=== PATIENT | male | born 1945 | race Caucasian/White ===

== ENCOUNTER 2018-09-08 12:54 | Outpatient (REF) | payer MEDICARE, SELFPAY ==
[2018-09-08 20:16] LABS: Anion Gap 9.7 mmol/L (3-11); BUN 23 mg/dL (7-18); CO2 32.3 mmol/L (21.0-32.0); CREATININE 1.07 mg/dL (0.70-1.30); Calcium 9.1 mg/dL (8.5-10.1); Chloride 98 mmol/L (98-107); Glucose 144 mg/dL (70-100); NT-proBNP 61 pg/mL; Potassium 3.7 mmol/L (3.5-5.1); Sodium 140 mmol/L (136-145)
== END 2018-09-08 13:14 ==
LOC: NCHCN 12:54
PROVIDERS: PCP Family Medicine; Visit Provider Family Medicine
DX: I50.9 Heart failure, unspecified (principal)
CPT/HCPCS: 80048; 83880

== ENCOUNTER 2019-02-17 01:28 | Outpatient (CLI) | payer MEDICARE, SELFPAY ==
--- NOTE | 2019-02-17 09:57 | DI.RAD_ITS ---
SYMPTOM/DIAGNOSIS: BILAT KNEE PAIN, M25.569 RIGHT KNEE: There is severe narrowing of the medial femoral tibial joint space. There is spurring medially as well as varus angulation. Spurring is also noted at the patellofemoral joint and quadriceps insertion on the patella. Posterior soft tissue calcifications are seen which may represent loose bodies within a Harris's cyst. IMPRESSION: Severe degenerative changes of the medial femoral tibial joint. LEFT KNEE: Weight bearing views were performed. There is severe degenerative changes of the medial femoral tibial joint and significant varus angulation. There is prominent spurring as well as some lateral subluxation of the tibia with respect to the distal femur. Multiple loose bodies are seen in the posterior joint space. Mild degenerative changes are seen at the patellofemoral joint. No joint effusion is seen. IMPRESSION: Severe degenerative changes of the medial femoral tibial joint and joint space loose bodies.
== END 2019-02-17 01:48 ==
PROVIDERS: PCP Family Medicine; Visit Provider Family Medicine
DX: M25.561 Pain in right knee (principal); M25.562 Pain in left knee; M17.0 Bilateral primary osteoarthritis of knee; M23.42 Loose body in knee, left knee
CPT/HCPCS: 73562

== ENCOUNTER 2019-11-13 12:00 | Outpatient (REF) | payer MEDICARE, SELFPAY ==
[2019-11-13 18:56] LABS: HCT 48.7 % (40.0-50.0); HGB 15.7 g/dL (13.5-17.5); Mean Corp. HGB Concentration 32.2 g/dL (32.0-36.0); Mean Corpuscular Hemoglobin 30.8 pg (27.0-33.0); Mean Corpuscular Volume 95.5 fL (80-95); Mean Platelet Volume 10.3 fL (8.0-11.0); Platelet Count 248 x1000/uL (130-400); RBC Distribution Width 13.5 % (11.8-14.1); White Blood Cell Count 6.68 k/cumm (4.4-10.8)
[2019-11-13 19:03] LABS: Anion Gap 9.1 mmol/L (3-11); BUN 25 mg/dL (7-18); CO2 30.9 mmol/L (21.0-32.0); CREATININE 0.99 mg/dL (0.70-1.30); Calcium 9.3 mg/dL (8.5-10.1); Chloride 103 mmol/L (98-107); Glucose 105 mg/dL (74-106); Potassium 4.6 mmol/L (3.5-5.1); Sodium 143 mmol/L (136-145)
[2019-11-16 11:06] LABS: Hepatitis C Ab w Rflx HCV PCR Negative (Negative)
== END 2019-11-13 12:20 ==
LOC: NCHCN 12:00
PROVIDERS: PCP Family Medicine; Visit Provider Family Medicine
DX: I50.9 Heart failure, unspecified (principal); I10 Essential (primary) hypertension; R73.09 Other abnormal glucose; Z11.59 Encounter for screening for other viral diseases
CPT/HCPCS: 80048; 85027; 86803

== ENCOUNTER 2020-01-01 01:06 | Outpatient (CLI) | payer MEDICARE, SELFPAY ==
--- NOTE | 2020-01-01 12:44 | PFT_ITS ---
PULMONARY FUNCTION TEST REPORT DATE OF SERVICE: January 01, 2020 REQUESTING PROVIDER: Roderick Ryan M.D. Spirometry shows no evidence of obstructive airways disease, no bronchodilator response. Lung volumes show no evidence of restriction. Diffusion capacity normal. Airways resistance normal. IMPRESSION: Overall normal pulmonary function study. Clinical correlation recommended. When this study was compared to previous one from 01/31/15, the patient has a total of 390 cc's increase in FVC. FEV1 has improved by 320 cc's. SAAD/charmaine D/
[2020-01-01] MEDS: Albuterol HFA 18 GM 200 PUFF INH IH (15:04)
[2020-01-01] MEDS: Inhaler, Assist Device 1 EACH MC (15:04)
== END 2020-01-01 01:26 ==
PROVIDERS: PCP Family Medicine; Visit Provider Family Medicine
DX: J98.4 Other disorders of lung (principal); Z87.891 Personal history of nicotine dependence
CPT/HCPCS: 94060; 94726; 94729

== ENCOUNTER 2020-01-11 00:35 | Outpatient (CLI) | payer MEDICARE, SELFPAY ==
--- NOTE | 2020-01-11 | DI.US_ITS ---
APPROVED REPORT EXAM: Comprehensive 2D, Doppler, and color-flow Echocardiogram Patient Location: [facility] [place] Expert: Marli An RDCS (AE) Indications: CHF, Pulmonary HTN, Chronic Dyspnea, Pre op Knee Conclusion Study is limited by poor imaging windows. Left Ventricle : The left ventricle is normal size. The left ventricular systolic function is normal. The left ventricular ejection fraction is within the normal range. Mild concentric left ventricular hypertrophy. There is normal LV segmental wall motion. The left ventricular diastolic function is nor mal. LVEF is 55-60%. Right Ventricle : Right ventricle is grossly normal in size. Right ventricular systolic function is g rossly normal. Atria : The left atrium size is normal. The right atrium size is normal. Valves: There are no hemodynamically significant valvular lesions. Great Vessels : IVC is normal in size and collapses >50% with inspiration. Estimated RVSP is 30-35 m mHg. Compared to echocardiogram dated 12/05/2017: Patient's estimated pulmonary pressures have decreased. T here are no other significant changes. Wall motion Left Ventricle The left ventricle is normal size. The left ventricular systolic function is normal. The left ventric ular ejection fraction is within the normal range. Mild concentric left ventricular hypertrophy. Ther e is normal LV segmental wall motion. The left ventricular diastolic function is normal. There is no ventricular septal defect visualized. LVEF is 55-60%. Right Ventricle Right ventricle is grossly normal in size. Right ventricular systolic function is grossly normal. Atria The left atrium size is normal. The right atrium size is normal. The interatrial septum is intact wit h no evidence for an atrial septal defect. Aortic Valve The Aortic valve is sclerotic. Aortic valve is trileaflet. There is no aortic valvular stenosis. No a ortic regurgitation is present. Mitral Valve There is mitral annular calcification. No evidence of mitral valve stenosis. Trace mitral regurgitati on. Tricuspid Valve The tricuspid valve is normal in structure. There is no tricuspid valve stenosis. Mild tricuspid regu rgitation. Pulmonic Valve The pulmonary valve is normal in structure. There is no pulmonic valvular stenosis. Trace pulmonic re gurgitation. Great Vessels The aortic root is normal in size. The ascending aorta is normal in size. IVC is normal in size and c ollapses >50% with inspiration. Estimated RVSP is 30-35 mmHg. Pericardium There is no pericardial effusion. There is no pleural effusion. 2D Dimensions IVSD d PLAX 1.13 cm M: 0.6-1.2 LA vol/ BSA A2C s A-L 32.9 mL/m2 LVPW d PLAX 1.11 cm M: 0.6 - 1.2 LA vol/ BSA A4C s A-L 44.5 mL/m2 LVID d PLAX 4.81 cm M: 4.2 - 5.8 LA Vol/ BSA Biplane s A-L 38.7 mL/m2 LVDs 3.40 cm M: 2.5 - 4.0 LA Area A4C s MOD 27.92 cm2 Ao Root d 3.52 cm M: 3.1 - 3.7 LA Area A2C s MOD 24.25 cm2 RA Area A4C 20.03 cm2 RA Vol/ BSA A4C s A-L 23.9 mL/m2 Ao Asc Diam d 3.23 cm M: 2.6 - 3.4 LV EF Teichholz 56.2 % FS 29.35 % LV Diastology MV E' medial 0.139 (>0.07 m/s) E/A Ratio 1.0 LV E/e MED 6.60 (<14) MV E Vmax 0.92 (0.4-1.3 m/s) MV E' lateral 0.134 (>0.1 m/s) MV A Vmax 0.90 (0.4-1.3 m/s) LV E/e LAT 6.85 (<14) MV E/A Ratio 0.98 MV E/E' medial 6.65 MV E/E' lateral 6.89 Aortic Valve LVOT Area 2.58 cm2 AoV Area Vmax 2.20 cm2 LVOT Vmax 1.56 m/s AoV Area/ BSA (Vmax) 0.88 cm2/m2 LVOT Mean Cory. 0.94 m/s ALEJANDRO Mean Cory. 1.92 cm2 LVOT Peak Grad 9.7 mmHg ALEJANDRO Mean Cory. Index 0.77 cm2/m2 LVOT Mean Grad 4.3 mmHg LVOT VTI 0.318 m LVOT Diam s 1.80 cm (M/F) 1.5-2.5 AoV Vmax 1.83 (0.5-1.3 m/s) Velocity Ratio 0.85 AoV Mean Cory. 1.26 m/s AoV Peak Grad 13.4 mmHg LVOT SV 82.07 mL AoV Mean Grad 7.1 (<5 mmHg) AoV VTI 0.324 (0.18-0.25 m) AoV Area VTI 2.53 (2.5-4.5 cm2) AoV Area/ BSA (VTI) 1.02 cm/m2 Mitral Valve MV DT 276 (160-240 msec) MV PHT 80 msec MV Area PHT 2.75 cm2 Pulmonary Valve PV Vmax 1.79 (0.5-1.5 m/s) RVOT Peak Gr. 3.97 mmHg PV Peak Grad 12.9 mmHg RVOT Mean Gr. 2.00 mmHg PV Mean Grad 6.5 mmHg RVOT VTI 0.194 m PV VTI 0.313 m RVOT Vmax 1.00 m/s Tricuspid Valve TR Peak Grad 31.7 mmHg TR Vmax 2.82 m/s RA Pressure 3.00 mmHg RVSP (TR) 34.8 mmHg
== END 2020-01-11 00:55 ==
PROVIDERS: PCP Family Medicine; Visit Provider Family Medicine
DX: I50.9 Heart failure, unspecified (principal); I27.20 Pulmonary hypertension, unspecified; R06.09 Other forms of dyspnea; I10 Essential (primary) hypertension
CPT/HCPCS: 93306

== ENCOUNTER 2020-12-08 21:43 | Outpatient (REF) | payer OTHER, SELFPAY ==
[2020-12-11 01:13] LABS: COVID-19 RT-PCR UVMMC Result Positive (Negative)
== END 2020-12-08 21:44 | disposition home or self-care (01) ==
LOC: NCHCN 21:43
PROVIDERS: PCP Family Medicine; Visit Provider Physician Assistant
DX: Z20.822 Contact with and (suspected) exposure to COVID-19 (principal)
CPT/HCPCS: U0003

== ENCOUNTER 2020-12-09 14:51 | Emergency (ER) | payer OTHER, SELFPAY ==
[2020-12-09] VITALS (10 sets, daily range): BP systolic 144–157; BP diastolic 75–123; PULSE 69–93; RESP 12–28; TEMP 36.8; O2SAT 90–94
--- NOTE | 2020-12-09 15:00 | RT.EKG_ITS ---
APPROVED REPORT Exam: Resting ECG Patient Location: E HR:93 bpm ECG Measurements Heart Rate 93 AXIS PA 187 P 51 QRSd 90 QRS 24 QT 344 T 5 QTc 429 Conclusion Sinus rhythm Ventricular premature complex Low voltage
--- NOTE | 2020-12-09 15:00 | DI.CT_ITS ---
EXAM: CT CHEST PE CTA CLINICAL HISTORY: L sided pain with cough. TECHNIQUE: Imaging Protocol: CT angiography of the chest was performed using pulmonary embolus yaya col. Multi planar reconstructions were performed. CONTRAST MATERIAL: Intravenous: Omnipaque 350 Contrast volume: 100 cc COMPARISON: CT ABD PELVIS without CONTRAST from 11/24/2013 FINDINGS: CHEST: PULMONARY ARTERIES: There are no obvious intraluminal filling defects to suggest acute pulmonary embo li. LUNGS: There are patchy infiltrates in both lungs all lobes. Tiny amount of left pleural fluid. No right pleural fluid. No pneumothorax. No significant focal findings in the trachea and mainstem bro nchi. MEDIASTINUM: There is no hilar nor mediastinal adenopathy. Visualized thyroid unremarkable. CARDIAC: Mild cardiomegaly. No pericardial effusion.Caliber of the thoracic aorta is within normal l imits. There is no evidence of shift of the interventricular septum. PARTIALLY VISUALIZED UPPERMOST ABDOMEN: No adrenal masses. Cyst in the right kidney measuring 2.5 cm . Partially included. OSSEOUS: There are healed fractures of the left 7th and 8th ribs and there is also a healed fracture of the right 5th rib evident.. There are no acute fractures evident. IMPRESSION: 1. No evidence of acute pulmonary emboli. No evidence of pulmonary infarction.Tiny amount of left pl eural fluid evident. 2. There are diffuse bilateral patchy lung infiltrates. Recommend appropriate testing for COVID-19. Other pulmonary pathology also to be considered. 3. Healed bilateral rib fractures as described above. No acute fractures evident. No lytic osseous lesions. RADIATION DOSE DELIVERED: LINK-TO-SR Total DLP DATA REPOSITORY: All CT scans at this facility are submitted to the National Radiology Data Registry (NRDR) Dose Index Registry (DIR) with the [employer] (ACR). RADIATION OPTIMIZATION: All CT scans at this facility use at least one of these dose optimization te chniques: automated exposure control; mA and/or kV adjustment per patient size (includes targeted exa ms where dose is matched to clinical indication); or iterative reconstruction.
--- NOTE | 2020-12-09 15:01 | ED.GENADUL_ITS ---
Discharge Plan Disposition Patient Disposition: AGAINST MEDICAL ADVICE Condition: Serious Discharge Details Clinical Impression: Multifocal pneumonia Primary Care Provider: Roderick Ryan ED Provider: Svetlana Adler Home Meds and New Rx's Prescriptions: New prednisone 20 mg tablet 60 mg PO DAILY 4 Days Qty: 12 RF: 0 doxycycline hyclate 100 mg capsule 100 mg PO BID 7 Days Qty: 14 RF: 0 Continued losartan 100 MG tablet 300 mg PO DAILY RF: 0 Flovent HFA 120 PUFF HFA aerosol inhaler 2 puff Inhalation BID RF: 0 albuterol sulfate [Ventolin HFA] 8 GM HFA aerosol inhaler 2 puff Inhalation Q4H PRN PRNRF: 0 Discharge Instructions Instructions: Hypoxia (ED), Pneumonia (ED) Additional Instructions: Your work-up here today is very suggestive of COVID-19. I am very concerned that your oxygen is too low and dropped very quickly with minimal movement. I do recommend inpatient admission which you have declined today. We will try our best to manage as an outpatient with steroids and antibiotics. You are given your dosing of steroids today, next dose to be due tomorrow. I would like for you to be reassessed by her primary care in the next 24 to 48 hours. I would also like for you to discuss multiclonal antibodies with the primary care tomorrow. You may return anytime for continued care. Please come back immediately if you have any shortness of breath, difficulty breathing, chest pain or other new/worsening symptoms. Referrals: Roderick Ryan [Primary Care Provider] - Discharge Data Discharge Date/Time-TO BE ENTERED AT DEPARTURE: 12/09/20 18:35 Medical Decision Making <ABDIRIZAK Pryor - Last Filed: 12/10/20 10:52> 74-year-old gentleman history of asthma, hypertension, obesity, presenting with left-sided pleuritic chest pain with coughing over the past 2-3 days. Contact his primary care provider and sent to the ER for CTA imaging. Patient's is Covid positive, patient had Covid test negative, still pending. Clinically he appears well, nontoxic. Plan is to initiate a cardiac work-up and CTA once renal function has been determined. Medical Records Medical records reviewed: Yes I reviewed the patient's medical records. Lab Data Lab results reviewed: Yes I reviewed the patient's lab results. Lab results narrative: Laboratory Tests Range/Units 12/09/20 12/09/20 15:18 15:18 WBC (4.4-10.8) 10^3/uL 6.82 RBC (4.36-5.78) 10^6/uL 4.75 Hgb (13.5-17.5) g/dL 14.6 Hct (40.0-50.0) % 43.0 MCV (80-95) fL 90.5 MCH (27.0-33.0) pg 30.7 MCHC (32.0-36.0) % 34.0 RDW (11.8-14.1) % 12.6 Plt Count (130-400) 10^3/uL 235 MPV (8.0-11.0) fL 9.0 Immature Gran % 0.6 Neutrophils % 65.9 Lymphocytes % 22.3 Monocytes % 10.6 Eosinophils % 0.3 Basophils % 0.3 Nucleated RBC % % 0 Absolute Neutrophils (1.2-6.7) 10^3/uL 4.50 Absolute Lymphocytes (1.2-3.4) 10^3/uL 1.52 Absolute Monocytes (0.1-0.8) 10^3/uL 0.72 Absolute Eosinophils (0.0-0.7) 10^3/uL 0.02 Absolute Basophils (0.0-0.2) 10^3/uL 0.02 PT (9.3-11.0) sec 10.7 INR (0.9-1.1) 1.1 APTT (21.0-27.5) sec 26.1 ECG Data Attestation: I personally reviewed and interpreted this ECG (s) as follows: Interpretation: Please see official report by Dr. Fontaine. Sinus rhythm, ventricular of 93. Ventricular premature complex. No STEMI. <ABDIRIZAK Shelley - Last Filed: 12/09/20 23:35> Care transition myself from Dino Marcus PA-C. Please see his note regarding initial presentation, history and exam. In brief, patient 74-year-old gentleman who presented today with known COVID-19 exposure and cough. Patient contacted his primary care construct he was having some left pleuritic chest pain. With concern for potential PE 100 to come here. Patient has been hemodynamically stable here labs are without significant abnormality. At this time I assume care, is pending. CT reviewed by radiologist FINDINGS: Pulmonary arteries: Normal. Contrast opacification is diagnostic. Aorta: Normal. Lungs: Patchy bilateral peripheral dominant ground-glass and airspace opacification throughout all segments of both lung [place]. This is seen in association with mild thickening of the upper and lower lobe bronchi. Pleural spaces: Small left pleural effusion. Heart: Normal. Coronary arteries: Thin scattered multivessel calcification. Lymph nodes: Right hilar lymph node measures up to 1.4 cm. Nonspecific mildly enlarged gastrohepatic ligament lymph node up to 1.3 cm. Bones/joints: Healed nondisplaced posterior left 7th and 8th rib fractures. No acute fracture. Healed lateral right 5th rib nondisplaced fracture. No acute right-sided rib fracture. In the upper pole the right kidney there is a 3.3 cm uniformly low attenuating intracortical mass that has attenuation values convincing for benign cyst. Soft tissues: Normal. IMPRESSION: 1. Negative for pulmonary arterial embolism. 2. Diffuse bilateral lung infiltrates/pneumonia seen in association with a very small left pleural effusion and mild enlarged right hilar lymph node. 3. Incidental findings include simple right renal cyst, old healed rib fractures and coronary artery disease. Commonly reported imaging features of COVID-19 pneumonia are present. Other processes such as influenza pneumonia and organizing pneumonia, as can be seen with drug toxicity and connective tissue disease, can cause a similar imaging pattern. (Reference: Joseph) Discussed these findings with the patient. Patient requesting discharge. I reevaluated the patient. He is currently on 1 L of oxygen. I did take the patient off of the oxygen and ambulated him in the room and he quickly dropped to 83%. I expressed my concern at this. I recommended inpatient admission for his hypoxia as well as continued care for his likely COVID-19. Patient's was COVID-19 positive. His test is pending. However, his history and the CT is very suggestive of this. Patient voices understanding of the risks associated with going home AGAINST MEDICAL ADVICE. Patient does demonstrate decision- making capacity and is able to do so without evidence of medical distress. He and I did discuss my concerns about him continuing to deteriorate at home. Patient will be given a dose of steroids here. He agrees to continue with steroids at home. We will also put him on a course of antibiotics in the event that this potentially could be a bacterial pneumonia. I also advised the patient that he would be a good candidate for monoclonal antibody and encouraged that he contact his primary care tomorrow morning to discuss getting this set up as an outpatient. We also discussed oxygen monitoring. He reports that he has a monitor and temperature probe at home I will continue to monitor these things. He is aware that he may return anytime with new or worsening symptoms or for continued evaluation. Patient's and I also discussed my concerns with patient's is also in agreement with him being discharged home. She will contact them up. All his questions and concerns were addressed. Patient is leaving AGAINST MEDICAL ADVICE. HPI <ABDIRIZAK Pryor - Last Filed: 12/10/20 10:52> General Mode of arrival: ambulatory . Date/Time Provider Initiated Documentation: 12/09/20 15:00 . Limitations to Documentation: no limitations . Information obtained by: patient . HPI Narrative: This is a 74-year-old male, history of asthma, hypertension, obesity. His was tested for Covid and came back +2-3 days ago. He reports a dry cough for the last few days, now associated with left-sided chest wall pain when coughing. He denies productive cough, fever, substernal chest pain, back pain, shortness of breath, abdominal pain, nausea, vomiting. He does report he is supposed to wear TRUMAN stockings, is not, questions if the swelling in his legs bilaterally is slightly worse than baseline. He contacted his primary care provider today who attempted to obtain an outpatient CTA, unable, sent to the ER for CTA. Patient was tested for Covid yesterday, test are pending. Related Data Home Medications Medication Instructions Recorded Confirmed Flovent HFA 2 puff INHALATION BID 11/24/13 12/09/20 albuterol sulfate [Ventolin HFA] 2 puff INHALATION Q4H PRN PRN 11/24/13 12/09/20 losartan 300 mg PO DAILY 11/24/13 12/09/20 doxycycline hyclate 100 mg PO BID 7 Days #14 cap 12/09/20 prednisone 60 mg PO DAILY 4 Days #12 tab 12/09/20 Previous Rx's Medication Instructions Recorded doxycycline hyclate 100 mg PO BID 7 Days #14 cap 12/09/20 prednisone 60 mg PO DAILY 4 Days #12 tab 12/09/20 Allergies Allergy/AdvReac Type Severity Reaction Status Date / Time lisinopril Allergy Mild Wheezing Unverified 12/09/20 15:06 blood pressure pills Allergy Intermediate Uncoded 12/09/20 15:06 Review of Systems <ABDIRIZAK Pryor - Last Filed: 12/10/20 10:52> Constitutional Constitutional: Denies fatigue, Denies fever(s) and Denies headache(s) ENT Ears, Nose, Mouth, and Throat: Denies headache(s) and Denies neck pain Cardiovascular Cardiovascular: Reports chest pain and Denies dyspnea Respiratory Respiratory: Reports cough and Denies dyspnea Gastrointestinal Gastrointestinal: Denies abdominal pain, Denies nausea and Denies vomiting Musculoskeletal Musculoskeletal: Denies back pain and Denies neck pain Integumentary/Breasts Skin/Breast: Denies rash Neurologic Neurologic: Denies headache(s) Endocrine Endocrine: Denies fatigue PFSH <ABDIRIZAK Pryor - Last Filed: 12/10/20 10:52> Medical History Abscess of liver Fungal Asthma Essential hypertension Family History Mother No problems noted. Father No problems noted. Social History Smoking/Tobacco Use Status: Former Tobacco Use Smoking risk assessment performed?: Yes Alcohol Intake: never Drug use: Never Substance use type: does not use Do you feel safe at home: Yes Do you feel safe in your relationship?: Yes Exam <ABDIRIZAK Pryor - Last Filed: 12/10/20 10:52> Const General: cooperative, healthy appearing, comfortable and no acute distress Orientation: alert, awake and oriented x3 HENMT Head: normal to inspection, normocephalic and atraumatic Eyes General: appearance normal, both eyes and all related structures Conjunctivae: conjunctivae normal Sclera: sclerae normal Neck Neck: normal visual inspection, full ROM, trachea midline and supple Resp Effort & Inspection: normal respiratory effort and able to speak in complete sentences Auscultation: clear to auscultation bilaterally Cardio Rate: regular rate Rhythm: regular rhythm GI Inspection: obesity Palpation: soft and nontender Back/Spine/Pelvis Back: No back tenderness Skin General skin exam: no rashes or lesions noted Neuro General: patient alert, patient awake, moves all extremities and no focal motor deficits Cognition: normal cognition Speech: speech normal Gait: normal gait Sensory Exam: no sensory deficits noted Extrem General: normal to inspection, full ROM, capillary refill normal, no calf tenderness and pedal edema bilaterally 3+ Psych Appearance: grossly normal Mental Status: mental status grossly normal Sign Out <ABDIRIZAK Pryor - Last Filed: 12/10/20 10:52> Sign Out Data: Sign Out Comment: History of asthma, obesity, hypertension. Left-sided pleuritic chest pain with coughing for the past 2-3 days. Sent in for CTA. His Covid test is pending as of yesterday, was +3 days ago. Last updated by Yan Marcus PA at 12/09/20 15:49
[2020-12-09 15:27] LABS: Abs Immature Grans 0.04 10^3/uL (0.0-0.06); Absolute Basophil Count 0.02 10^3/uL (0.0-0.2); Absolute Eosinophil Count 0.02 10^3/uL (0.0-0.7); Absolute Lymphocyte Count 1.52 10^3/uL (1.2-3.4); Absolute Monocyte Count 0.72 10^3/uL (0.1-0.8); Basophils % 0.3; Eosinophils % 0.3; HGB 14.6 g/dL (13.5-17.5); Immature Grans % 0.6; Lymphocytes % 22.3; MCH 30.7 pg (27.0-33.0); MCV 90.5 fL (80-95); Monocytes % 10.6; Neutrophils % 65.9; Nucleated RBC 0 %; Platelet Count 235 10^3/uL (130-400); RBC 4.75 10^6/uL (4.36-5.78); RDW 12.6 % (11.8-14.1); WBC 6.82 10^3/uL (4.4-10.8)
[2020-12-09 15:42] LABS: INR 1.1 (0.9-1.1); PTT Activated 26.1 sec (21.0-27.5); Prothrombin Time 10.7 sec (9.3-11.0)
[2020-12-09 15:50] LABS: ALT 56 U/L (16-63); AST 40 U/L (15-37); Albumin 3.3 g/dL (3.4-5.0); Alkaline Phosphatase 74 U/L (46-116); Anion Gap 10.6 mmol/L (3-11); BUN 14 mg/dL (7-18); Bilirubin, Total 0.8 mg/dL (0.2-1.0); CO2 25.4 mmol/L (21.0-32.0); Calcium 8.5 mg/dL (8.5-10.1); Chloride 101 mmol/L (98-107); Glucose 143 mg/dL (74-106); Magnesium 1.7 mg/dL (1.8-2.4); Potassium 3.8 mmol/L (3.5-5.1); Sodium 137 mmol/L (136-145); Total Protein 7.7 g/dL (6.4-8.2)
[2020-12-09 15:53] LABS: Troponin I < 0.05 ng/mL (<0.06)
[2020-12-09] MEDS: Aspirin 81 MG CHEW 324 MG CH (15:56)
[2020-12-09] MEDS: Normal Saline - Diluent 50 ML VIAL IV (16:06)
[2020-12-09] MEDS: Omnipaque 350 MG/ML 100 ML BTL IJ (16:07)
--- NOTE | 2020-12-09 16:49 | DI.VRAD_ITS ---
PROCEDURE INFORMATION: Exam: CT Angiography Chest With Contrast Exam date and time: 12/09/2020 3:07 PM Age: 74 years old Clinical indication: Left-sided chest pain; Patient HX: L sided pain with cough TECHNIQUE: Imaging protocol: Computed tomographic angiography of the chest with contrast. 3D rendering (Not supervised by radiologist): MIP and/or 3D reconstructed images were created by the technologist. COMPARISON: No relevant prior studies available. FINDINGS: Pulmonary arteries: Normal. Contrast opacification is diagnostic. Aorta: Normal. Lungs: Patchy bilateral peripheral dominant ground-glass and airspace opacification throughout all segments of both lung [place]. This is seen in association with mild thickening of the upper and lower lobe bronchi. Pleural spaces: Small left pleural effusion. Heart: Normal. Coronary arteries: Thin scattered multivessel calcification. Lymph nodes: Right hilar lymph node measures up to 1.4 cm. Nonspecific mildly enlarged gastrohepatic ligament lymph node up to 1.3 cm. Bones/joints: Healed nondisplaced posterior left 7th and 8th rib fractures. No acute fracture. Healed lateral right 5th rib nondisplaced fracture. No acute right-sided rib fracture. In the upper pole the right kidney there is a 3.3 cm uniformly low attenuating intracortical mass that has attenuation values convincing for benign cyst. Soft tissues: Normal. IMPRESSION: 1. Negative for pulmonary arterial embolism. 2. Diffuse bilateral lung infiltrates/pneumonia seen in association with a very small left pleural effusion and mild enlarged right hilar lymph node. 3. Incidental findings include simple right renal cyst, old healed rib fractures and coronary artery disease. Commonly reported imaging features of COVID-19 pneumonia are present. Other processes such as influenza pneumonia and organizing pneumonia, as can be seen with drug toxicity and connective tissue disease, can cause a similar imaging pattern. (Reference: Joseph) References: Joseph Arguello et al., Radiological Society of [place] Expert Consensus Statement on Reporting Chest CT Findings Related to COVID-19. Endorsed by the Society of Thoracic Radiology, the [employer], and RSNA. Published January 20, 2020. Dictated and Authenticated by: Kelton Velasquez MD. Ordering:HARINI Heredia MD
[2020-12-09 17:32] LABS: NT-proBNP 120 pg/mL (<300)
[2020-12-09] MEDS: Dexamethasone 4 MG/ML VIAL 6 MG IVP (18:02)
[2020-12-09] MEDS: Doxycycline Hyclate 100 MG CAP PO (18:03)
--- NOTE | 2020-12-09 18:28 | NUR.NOTE ---
explained to patient the risk of signing out AMA. PAtient stated i have to some day.
== END 2020-12-09 18:35 | disposition left against medical advice (07) ==
PROVIDERS: Physician Assistant; Emergency Provider Physician Assistant; PCP Family Medicine
DX: J18.8 Other pneumonia, unspecified organism (principal); Z53.29 Procedure and treatment not carried out because of patient's decision for other reasons; R06.89 Other abnormalities of breathing; Z20.822 Contact with and (suspected) exposure to COVID-19; I10 Essential (primary) hypertension
CPT/HCPCS: 71275; 80053; 93005; 96374; 99285; 83735; 83880; 84484; 85025; 85610; 85730; 93010; 99284; J1100; J3490

== ENCOUNTER 2020-12-14 02:27 | Outpatient (CLI) | payer OTHER, SELFPAY ==
[2020-12-14] MEDS: Normal Saline 500 ML 30 ML IV (09:02)
[2020-12-14] MEDS: Normal Saline Flush 10 ML SYR IVP (09:02)
[2020-12-14 09:05] VITALS: BP 165/95; PULSE 85; RESP 28; TEMP 38.4; O2SAT 92
[2020-12-14 09:08] VITALS: BP 159/83; PULSE 80; RESP 20; TEMP 37.4; O2SAT 92
[2020-12-14 09:28] VITALS: BP 156/82; PULSE 79; RESP 24; TEMP 38.2; O2SAT 91
[2020-12-14 10:00] VITALS: BP 154/84; PULSE 76; RESP 20; TEMP 37.7; O2SAT 93
[2020-12-14 10:30] VITALS: BP 175/83; PULSE 74; RESP 20; TEMP 37.9; O2SAT 92
== END 2020-12-14 02:28 | disposition home or self-care (01) ==
PROVIDERS: PCP Family Medicine; Visit Provider Family Medicine
DX: U07.1 COVID-19 (principal)
CPT/HCPCS: 96365

== ENCOUNTER 2021-02-03 08:11 | Outpatient (REF) | payer OTHER, MEDICARE, SELFPAY ==
[2021-02-03 15:36] LABS: ALT 34 U/L (16-63); AST 24 U/L (15-37); Alkaline Phosphatase 62 U/L (46-116); Anion Gap 9.2 mmol/L (3-11); BUN 23 mg/dL (7-18); Bilirubin, Total 0.5 mg/dL (0.2-1.0); CO2 28.8 mmol/L (21.0-32.0); CREATININE 1.2 mg/dL (0.70-1.30); Chloride 103 mmol/L (98-107); Estimated GFR 59.35 (mL/min/1.73m2); Glucose 104 mg/dL (74-106); Potassium 4.3 mmol/L (3.5-5.1); Sodium 141 mmol/L (136-145); Total Protein 7.4 g/dL (6.4-8.2)
== END 2021-02-03 08:12 | disposition home or self-care (01) ==
LOC: NCHCN 08:11
PROVIDERS: PCP Family Medicine; Visit Provider Family Medicine
DX: I10 Essential (primary) hypertension (principal)
CPT/HCPCS: 80053

== ENCOUNTER → 2022-01-05 08:21 | Outpatient (BNVA) | payer OTHER, SELFPAY | PROVIDERS: PCP Family Medicine; Referring Provider Family Medicine; Visit Provider Student in an Organized Health Care Education/Training Program | DX: M17.12 Unilateral primary osteoarthritis, left knee (principal); M17.11 Unilateral primary osteoarthritis, right knee | CPT/HCPCS: 99213 ==

== ENCOUNTER 2022-04-03 14:23 | Outpatient (CLI) | payer OTHER, SELFPAY ==
--- NOTE | 2022-04-03 13:30 | DI.RAD_ITS ---
Exam(s) XR STANDING ALIGNMENT XR KNEE RT 1V EXAM: XR STANDING ALIGNMENT CLINICAL HISTORY: PRE OP R TKA. TECHNIQUE: 2D digital imaging was performed. Standing AP views were performed from the pelvis throu gh the ankles. Lateral view of the right knee COMPARISON: CR XR knee LT 3V AP,lat,roman from 02/17/2019 CR XR knee RT 3V AP,lat,roman from 02/17/2019 CR XR KNEE RT 1V from 04/03/2022 FINDINGS: BONES: No acute fracture is present. No bony destructive lesion is seen. JOINTS: Knees: Severe narrowing of the medial femoral tibial joint spaces, with a [id number] appear ance, causing severe varus angulation. The ankle and hip joints are unremarkable. There is a mild overall leg length discrepancy at the lev el of the femoral heads with the right projecting 5 millimeters superior to the left. SOFT TISSUE: Normal. 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 Mild significan t leg length discrepancy. DATA REPOSITORY: RADIATION DOSE DELIVERED:
--- NOTE | 2022-04-03 13:30 | DI.RAD_ITS ---
Exam(s) XR STANDING ALIGNMENT XR KNEE RT 1V EXAM: XR STANDING ALIGNMENT CLINICAL HISTORY: PRE OP R TKA. TECHNIQUE: 2D digital imaging was performed. Standing AP views were performed from the pelvis throu gh the ankles. Lateral view of the right knee COMPARISON: CR XR knee LT 3V AP,lat,roman from 02/17/2019 CR XR knee RT 3V AP,lat,roman from 02/17/2019 CR XR KNEE RT 1V from 04/03/2022 FINDINGS: BONES: No acute fracture is present. No bony destructive lesion is seen. JOINTS: Knees: Severe narrowing of the medial femoral tibial joint spaces, with a [id number] appear ance, causing severe varus angulation. The ankle and hip joints are unremarkable. There is a mild overall leg length discrepancy at the lev el of the femoral heads with the right projecting 5 millimeters superior to the left. SOFT TISSUE: Normal. 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 Mild significan t leg length discrepancy. DATA REPOSITORY: RADIATION DOSE DELIVERED:
== END 2022-04-03 14:24 | disposition home or self-care (01) ==
LOC: DIORS 14:23
PROVIDERS: PCP Family Medicine; Referring Provider Family Medicine; Visit Provider Physician Assistant
DX: M17.11 Unilateral primary osteoarthritis, right knee (principal); R73.03 Prediabetes
CPT/HCPCS: 73560; 77073

== ENCOUNTER 2022-04-09 03:51 | Outpatient (CLI) | payer OTHER, SELFPAY ==
[2022-04-09 11:58] LABS: Source Nasal/Nares
[2022-04-09 16:19] LABS: COVID-19 PCR Negative (Negative)
== END 2022-04-09 03:52 | disposition home or self-care (01) ==
PROVIDERS: PCP Family Medicine; Visit Provider Student in an Organized Health Care Education/Training Program
DX: Z20.822 Contact with and (suspected) exposure to COVID-19 (principal); Z01.818 Encounter for other preprocedural examination
CPT/HCPCS: 87635; U0005

== ENCOUNTER 2022-04-09 04:15 | Outpatient (CLI) | payer OTHER, SELFPAY ==
[2022-04-09 08:48] LABS: HCT 46.2 % (40.0-50.0); HGB 15.4 g/dL (13.5-17.5); MCH 30.8 pg (27.0-33.0); MCHC 33.3 % (32.0-36.0); MCV 92 fL (80-95); MPV 9.2 fL (8.0-11.0); Platelet Count 250 10^3/uL (130-400); RDW 12.8 % (11.8-14.1); RDW-SD 43.8 fL; WBC 8.35 10^3/uL (4.4-10.8)
[2022-04-09 09:15] LABS: Hemoglobin A1C 5.9 % (<5.7)
[2022-04-09 09:27] LABS: Anion Gap 6.6 mmol/L (3-11); BUN 25 mg/dL (7-18); CO2 29.4 mmol/L (21.0-32.0); CREATININE 1.1 mg/dL (0.70-1.30); Chloride 103 mmol/L (98-107); Glucose 109 mg/dL (74-106); Potassium 4.1 mmol/L (3.5-5.1); Sodium 139 mmol/L (136-145)
== END 2022-04-09 04:16 | disposition home or self-care (01) ==
LOC: LBO 04:15
PROVIDERS: Physician Assistant; PCP Family Medicine; Visit Provider Student in an Organized Health Care Education/Training Program
DX: M25.561 Pain in right knee (principal); M17.11 Unilateral primary osteoarthritis, right knee; R73.03 Prediabetes; Z01.818 Encounter for other preprocedural examination; Z01.812 Encounter for preprocedural laboratory examination
CPT/HCPCS: 36415; 80048; 85027; 83036

== ENCOUNTER 2022-04-10 07:10 | Day surgery (SDC) | payer OTHER, SELFPAY ==
[2022-04-10] VITALS (16 sets, daily range): BP systolic 97–157; BP diastolic 50–77; PULSE 64–86; RESP 13–21; TEMP 36.2–36.7; O2SAT 93–98; BMI 46.0
--- NOTE | 2022-04-10 07:20 | W.PM.DS.N ---
DS: Diagnosis Discharge Diagnosis (1) Degenerative joint disease of right knee: Status: Acute Discharge Plan Disposition Patient Disposition: HOME Condition: Good Discharge Details Reason For Visit: Right knee DJD Attending Provider: Gwyn Rich Primary Care Provider: Roderick Ryan Home Meds and New Rx's Prescriptions: New celecoxib [Celebrex] 200 mg capsule 200 mg PO BID Qty: 30 0RF aspirin 81 mg tablet,delayed release (DR/EC) 81 mg PO BID 30 Days Qty: 60 0RF acetaminophen 500 mg tablet 500 mg PO Q6H PRN (Reason: pain) Qty: 60 2RF pantoprazole 40 mg tablet,delayed release (DR/EC) 40 mg PO DAILY 30 Days Qty: 30 0RF docusate sodium [Colace] 100 mg capsule 100 mg PO BID Qty: 30 0RF gabapentin 300 mg capsule 300 mg PO QHS Qty: 14 0RF Rx Instructions: Take one tablet at bedtime oxycodone 5 mg tablet 5 mg PO Q4H PRN (Reason: severe post-operative pain) Qty: 18 0RF Rx Instructions: Take one tablet up to every 4 hours as needed for severe pain Continued metoprolol succinate 25 mg tablet extended release 24 hr 25 mg PO DAILY albuterol sulfate [Ventolin HFA] 90 mcg/actuation HFA aerosol inhaler 2 puff inhalation Q6H PRN valsartan 320 mg tablet 320 mg PO DAILY chlorthalidone 25 mg tablet 25 mg PO HS No Action ibuprofen [Advil] 200 mg Tablet 1,000 mg PO Q6H PRN Discharge Instructions Additional Instructions: Total Knee Discharge Instructions Activity: The most important activity is to walk. You should try to take short walks a few times a day. It is important that when resting you work on keeping the knee straight. Avoid putting a pillow behind the knee as this will encourage flexion. Work on range of motion exercises as provided by Physical Therapy. - Start outpatient physical therapy within 2 weeks. - You should wear the TRUMAN hose on both legs for 2 weeks. You may remove these at night. You may also use any compression sock in place of the TRUMAN hose. - Utilize [employer] to review exercises, see videos on exercises and obtain basic information pertaining to your surgery and your recovery. Dressing: Remove the Jovi wrap by 2 days after your surgery and put on the TRUMAN stocking given to you from the hospital. Keep the surgical dressing (underneath the JOVI wrap) in place for at least one week. After the first week it may be removed and replaced with light gauze and tape or nothing. The wound and dressing may get wet after 3 days but avoid soaking the dressing or otherwise it will need to be changed. Many people prefer covering the dressing with cling wrap (saran wrap) to minimize it from getting soaked. If it gets wet, just pat dry. If it starts to peel off then it will need to be changed. Medications: - You should take Tylenol and anti-inflammatory Celebrex as your primary pain control medications. If the Celebrex is too expensive or not covered, please call the office for another alternative (Advil/Ibuprofen or Naproxen/Aleve) - You have been prescribed a stronger pain medication Oxycodone for breakthrough pain, take as needed as prescribed. - You have also been prescribed a stomach acid reduction agent Pantoprozole to help reduce stomach acid and reflux. - You have been prescribed Gabapentin to take at night for restlessness and nerve pain. - You will be taking Aspirin 81mg twice a day for DVT prevention unless instructed otherwise. - If you have constipation you should take Colace (which was prescribed) or Miralax ([id number]). It takes most people 3-4 days to have a bowel movement. Follow-up: 2 weeks If you have any acute concerns or questions, please do not hesitate to contact the office at [phone]. You may contact Dr. Rich with any questions after hours through the hospital at [phone] or on his cell phone at [phone]. Referrals: Gwyn Rich MD [ [facility] STAFF PHYSICIAN] - Equipment/Supplies: Walker Activity:: Elevate Remove Dressings/Wound Care:: Do Not Remove Shower/Bathe:: Cover Diet:: As Tolerated Discharge Orders Discharge Orders: Discharge Order (Routine); Ordered 04/10/22 Ordered By: Gwyn Rich DS: Summary Time Spent with Patient providing and/or coordinating discharge services: Less than 30 minutes Status at Discharge Functional status at discharge: uses cane/walker Overall status at discharge: patient is progressing back to baseline Mental Status: mental status grossly normal Speech and Movement: speech and movement normal Mood: congruent mood Affect: normal affect Exam Psych Mental Status: mental status grossly normal Speech and Movement: speech and movement normal Mood: congruent mood Affect: normal affect DS: Data Vitals/I&O Vitals and I&O: Intake & Output 04/09/22 04/09/22 04/10/22 11:59 23:59 11:59 Weight 303 lb 15.997 oz PFSH All Active Problems Degenerative joint disease of right knee (Acute) Left knee DJD (Acute) Chronic venous insufficiency of lower extremity (Acute) left leg Prediabetes (Acute) CHF (congestive heart failure) (Chronic) Bilateral primary osteoarthritis of knee (Acute) HENNY (obstructive sleep apnea) (Chronic) Denies diagnosis and snoring 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 (Acute) Small bowel obstruction (Acute 11/24/13) Asthma (Chronic) Hypertension (Chronic) Medical History Asthma COVID-19 Essential hypertension History of tobacco use Surgical History Abscess of liver Fungal ~2010 Family History Mother No problems noted. Father No problems noted. Social History Smoking/Tobacco Use Status: Former Tobacco Use Quit Date: 10/28/94 Smoking risk assessment performed?: Yes Alcohol Intake: never Drug use: Never Substance use type: does not use Current gender identity: male Do you feel safe at home: Yes Do you feel safe in your relationship?: Yes
[2022-04-10] MEDS: Celecoxib 200 MG CAP 400 MG PO (07:59)
[2022-04-10] MEDS: Acetaminophen 500 MG TAB 1000 MG PO (07:59)
[2022-04-10] MEDS: Gabapentin 300 MG CAP PO (08:00)
[2022-04-10] MEDS: Lactated Ringers 1,000 ML 80 ML IV (08:10)
--- NOTE | 2022-04-10 08:51 | W.ANESPRE ---
General Info Date of Service Date Performed: 04/10/22 Height: 5 ft 8 in Weight: 137.4 kg Body Mass Index (BMI): 46.0 Surgical Procedure: Operation Date: 04/10/22 09:25 Proposed Procedure Side Surgeon p Knee Total Arthroplasty Cementless CR Right Gwyn Rich MD Meds Allergies and Home Medications Allergies Allergy/AdvReac Type Severity Reaction Status Date / Time lisinopril Allergy Mild Wheezing Unverified 04/10/22 07:34 aspirin AdvReac Other (See Verified 04/10/22 07:34 Comment) atenolol AdvReac cough Verified 04/10/22 07:34 spironolactone AdvReac cough, n/v Verified 04/10/22 07:34 vardenafil [From Levitra] AdvReac headache/pr Verified 04/10/22 07:34 essure blood pressure pills Allergy Intermediate Uncoded 04/10/22 07:34 Home Medication Medication Instructions Recorded albuterol sulfate 90 mcg/actuation 2 puff inhalation Q6H PRN 11/24/21 aerosol inhaler (Ventolin HFA) chlorthalidone 25 mg tablet 25 mg PO HS 11/24/21 metoprolol succinate 25 mg 25 mg PO DAILY 11/24/21 tablet,extended release 24 hr valsartan 320 mg tablet 320 mg PO DAILY 11/24/21 acetaminophen 500 mg tablet 500 mg PO Q6H PRN pain #60 tabs 04/10/22 aspirin 81 mg tablet,delayed 81 mg PO BID 30 days #60 tabs 04/10/22 release celecoxib 200 mg capsule (Celebrex) 200 mg PO BID #30 caps 04/10/22 docusate sodium 100 mg capsule 100 mg PO BID #30 caps 04/10/22 (Colace) gabapentin 300 mg capsule 300 mg PO QHS #14 caps 04/10/22 ibuprofen 200 mg tablet (Advil) 1,000 mg PO Q6H PRN 04/10/22 oxycodone 5 mg tablet 5 mg PO Q4H PRN severe 04/10/22 post-operative pain #18 tabs pantoprazole 40 mg tablet,delayed 40 mg PO DAILY 30 days #30 tabs 04/10/22 release Current Visit Medications: Current Medications Generic Name Dose Route Start Last Admin Trade Name Freq PRN Reason Stop Dose Admin Acetaminophen 1,000 mg 04/10/22 06:00 04/10/22 07:59 Acetaminophen 500 Mg Tab PO 04/10/22 16:00 1,000 mg PREOP SHAHID Administration Acetaminophen 1,000 mg 04/10/22 14:00 Acetaminophen 500 Mg Tab PO TID SHAHID Aspirin 81 mg 04/10/22 20:00 Aspirin E.C. 81 Mg Tabec PO BID SHAHID Celecoxib 400 mg 04/10/22 06:00 04/10/22 07:59 Celecoxib 200 Mg Cap PO 04/10/22 16:00 400 mg PREOP SHHAID Administration Celecoxib 200 mg 04/10/22 20:00 Celecoxib 200 Mg Cap PO BID SHAHID Docusate Sodium 100 mg 04/10/22 07:18 Docusate Sodium 100 Mg Cap PO BID PRN PRN Constipation Gabapentin 300 mg 04/10/22 06:00 04/10/22 08:00 Gabapentin 300 Mg Cap PO 04/10/22 16:00 300 mg PREOP SHAHID Administration Gabapentin 300 mg 04/10/22 22:00 Gabapentin 300 Mg Cap PO HS SHAHID Hydromorphone HCl 0.5 mg 04/10/22 07:18 Hydromorphone 2 Mg/Ml Vial IVP Q2H PRN PRN Tranexamic Acid 1,000 mg/ 60 mls @ 360 mls/hr 04/10/22 06:00 Sodium Chloride IVPB 04/10/22 16:00 PREOP SHAHID Ringer's Solution 1,000 mls @ 80 mls/hr 04/10/22 06:00 04/10/22 08:10 IV 05/09/22 23:59 80 mls/hr INFUSION SHAHID Administration Cefazolin Sodium 3,000 mg/ 100 mls @ 200 mls/hr 04/10/22 06:00 Sodium Chloride IVPB 04/10/22 16:00 PREOP SHAHID Cefazolin Sodium/Dextrose 1 gm in 50 mls @ 100 mls/hr 04/10/22 08:00 Ancef Duplex IVPB 04/11/22 00:29 Q8H SHAHID IV Miscellaneous Supplies 1 each 04/10/22 06:00 Iv Access IV 05/09/22 23:59 DIRECTED SHAHID Ondansetron HCl 4 mg 04/10/22 07:18 Ondansetron 4 Mg/2 Ml Vial IVP Q6H PRN PRN Nausea Oxycodone HCl 0 mg 04/10/22 07:18 Oxycodone 5 Mg Tab PO Q3H PRN PRN Pain Pantoprazole Sodium 40 mg 04/11/22 07:30 Pantoprazole 40 Mg Tabcr PO DAILY@0730 SHAHID Polyethylene Glycol 17 gm 04/10/22 07:18 Polyethylene Glycol 3350 17 Gm Packet PO BID PRN PRN Constipation Sodium Chloride 0 ml 04/10/22 06:00 Normal Saline Flush 10 Ml Syr IV 05/09/22 23:59 PRN PRN Sodium Chloride 0 ml 04/10/22 06:00 Normal Saline 10 Ml Vial IJ 05/09/22 23:59 DIRECTED PRN Sterile Water 0 ml 04/10/22 06:00 Water,Injection,Sterile 10 Ml Vial IJ 05/09/22 23:59 DIRECTED PRN PFSH Active Problems Active Problems: Problem Status Onset Code Degenerative joint disease of right knee M17.11 Left knee DJD M17.12 Chronic venous insufficiency of lower extremity I87.2 Prediabetes R73.03 CHF (congestive heart failure) I50.9 Bilateral primary osteoarthritis of knee M17.0 HENNY (obstructive sleep apnea) G47.33 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 C44.219 Small bowel obstruction 11/24/13 K56.69 Asthma J45.909 Hypertension I10 Medical History Medical History Asthma COVID-19 Essential hypertension History of tobacco use Surgical History Surgical History Abscess of liver Fungal ~2010 Tobacco Smoking/Tobacco Use Status: Former Tobacco Use Alcohol Alcohol Intake: never Substance Use Substance use: Never Substance use type: does not use Vital Signs and Lab Results Vital Signs Most Recent Vital Signs in EMR: Most Recent Vital Signs Temp Pulse Resp BP Pulse Ox 36.7 C 80 16 157/70 H 97 04/10/22 07:47 04/10/22 07:47 04/10/22 07:47 04/10/22 07:47 04/10/22 07:47 Lab Results Blood Type / Crossmatch: No Data to Display Complete Blood Count: White Blood Count 8.35 10^3/uL (4.4-10.8) 04/09/22 08:32 Red Blood Count 5.00 10^6/uL (4.36-5.78) 04/09/22 08:32 Hemoglobin 15.4 g/dL (13.5-17.5) 04/09/22 08:32 Hematocrit 46.2 % (40.0-50.0) 04/09/22 08:32 Platelet Count 250 10^3/uL (130-400) 04/09/22 08:32 Complete Metabolic Panel: Sodium Level 139 mmol/L (136-145) 04/09/22 08:32 Potassium Level 4.1 mmol/L (3.5-5.1) 04/09/22 08:32 Chloride Level 103 mmol/L (98-107) 04/09/22 08:32 Carbon Dioxide Level 29.4 mmol/L (21.0-32.0) 04/09/22 08:32 Blood Urea Nitrogen 25 mg/dL (7-18) H 04/09/22 08:32 Creatinine 1.1 mg/dL (0.70-1.30) 04/09/22 08:32 Estimated GFR/1.73 m2 >= 60.00 (mL/min/1.73m2) 04/09/22 08:32 Calcium Level 9.0 mg/dL (8.5-10.1) 04/09/22 08:32 Glucose Level 109 mg/dL (74-106) H 04/09/22 08:32 Hemoglobin A1c 5.9 % (<5.7) H 04/09/22 08:32 Liver Function Panel: No Data to Display Coagulation Panel: No Data to Display Cardiac Panel: No Data to Display Arterial Blood Gas: No Data to Display Venous Blood Gas: No Data to Display Pancreas Panel: No Data to Display Thyroid Panel: No Data to Display Infectious Disease: Coronavirus (COVID-19)(PCR) Negative (Negative) 04/09/22 08:42 Coronavirus 2019 Source Nasal/Nares 04/09/22 08:42 Blood Cultures: No Data to Display Toxicology Panel: No Data to Display Anesthesia Assessment and Plan Anesthesia History Personal History: No History of Anesthesia Complications Family History: No Family History of Anesthesia Complications Exercise Tolerance Exercise Tolerance: Metabolic Equivalents>4 Pertinent Negatives Pertinent Negatives: No Symptoms of GERD, No Major Cardiovascular Symptoms or Complaints, No Major Pulmonary Symptoms or Complaints and No History of CVA/TIA Cardiac & Pulmonary Exam Cardiac Exam: Normal S1/S2 Heart Sounds Pulmonary Exam: Clear Bilateral Breath Sounds Implantable Cardiac Device Does patient have a Pacemaker or an ICD?: No Airway Exam Known Difficult Airway: No Mallampati Class: 1 Mouth Opening: Normal (> 3cm) Thyromental Distance: Greater than 3 cm Facial Hair: Full [place] Neck Range of Motion: Limited ROM Neck Circumference: Thick Teeth Condition: Generalized Poor Dentition ASA Classification ASA Score: ASA 3 Emergency Case?: No NPO Status NPO Status: NPO Clears >2 hours, Solids >8 hours Anesthesia Plan Resuscitation Status: Full Code Anesthesia Technique: Spinal Anesthesia Airway Planned: Natural Airway Pain Management: Surgeon and patient request nerve block Monitors Used: Standard Monitors
[2022-04-10] MEDS: ceFAZolin 3,000 MG in Normal Saline 100 ML 200 MG IVPB (09:09)
--- NOTE | 2022-04-10 09:57 | W.ANESNERVE ---
Nerve Block Single Injection Procedure Date and Time Date Performed: 04/10/22 Procedure Start: 08:55 Location Where Procedure Performed Procedure Location: Day Surgery Unit (214) Reason Performed: Postoperative Analgesia Requesting Provider: Gwyn Rich Timeout Performed Timeout Performed: Yes Monitoring Used ECG, Blood Pressure and SpO2 Sterility Sterility: Hand Hygiene, Surgical Cap, Surgical Mask, Sterile Gloves and Eye Protection Sedation Given During Procedure Sedation Given (Indicate Dose Given): No Sedation given Patient Mental Status Patient Mental Status: Awake Nerve Block 1st Nerve Block: Laterality: Right Block Type: Adductor Canal Needle / Catheter Used: 100mm SonoPlex II Local Anesthetic Bolus (Indicate Dose Given): Lidocaine used for local infiltration of skin, Injected in 3-5ml increments after negative blood aspiration and Bupivacaine 0.25% Dose:: 20 cc Additives (Indicate Dose Given): None Ultrasound: Sterile probe cover and gel used Ultrasound Image Saved?: Yes Nerve Stimulator: Not Used Paresthesia: None Post Procedure Pain score (0-10): 0 Procedure Tolerated: No Complications and Patient tolerated well Procedure Outcome: Unsuccessful Performed By: Richard Kumar
--- NOTE | 2022-04-10 11:30 | RT.EKG_ITS ---
APPROVED REPORT Exam: Resting ECG Reason for Exam: Chest pain, post surgical Patient Location: O HR:65 bpm ECG Measurements Heart Rate 65 AXIS IL 215 P 66 QRSd 96 QRS 21 QT 428 T -5 QTc 446 Conclusion Sinus rhythm...normal P axis, V-rate 60- 99 Borderline prolonged IL interval...IL >212, V-rate 50- 90 Low voltage, precordial leads...precordial leads <1.0mV
[2022-04-10] MEDS: Aspirin 81 MG CHEW PO (11:50)
--- NOTE | 2022-04-10 12:14 | W.PM.OP ---
Date of service: 04/10/22 Time of Service: 11:00 Operative Note Operative Note DATE OF PROCEDURE: 04/10/22 PRE-OP DIAGNOSIS: Right Knee Osteoarthritis with Varus Deformity POST-OP DIAGNOSIS: same PROCEDURE: Right Total Knee Replacement SURGEON: Gwyn iRch [employer] OFFICER: Janice Pink ANESTHESIA TYPE: Spinal Refer to Anesthesia Record ESTIMATED BLOOD LOSS: 100 PATHOLOGY: none sent TOURNIQUET TIME: 0 COMPLICATIONS: None Patient was transported to: PACU Patient's condition: stable Implants: 1. Depuy Attune Cementless Posterior Stabilized Femoral Component, Size 7 2. Depuy Attune Cementless Rotating Platform Tibial Component, Size 7 3. Depuy Attune 7x6 PS/RP Poly 4. Depuy Attune Patellar Component, Size 38 Indications: I have seen Gerardo in clinic for symptoms of knee arthritis, confirmed with radiographic findings. He has exhausted nonoperative methods and was having significant limitations in daily function and desired better function and less pain. I discussed the technical details of a knee replacement. I explained the risks of the procedure to include, but not limited to, bleeding, infection, pain, stiffness, fracture, damage to nerves and vessels, damage to muscles and tendons, loosening, need for repeat procedure, blood clot and cardiopulmonary demise. Despite these risks, Gerardo elected to proceed. Findings: There was significant signs of arthritis throughout the knee involving all 3 compartments with large osteophytes, especially medially. Procedure Description: Gerardo was greeted in the preoperative holding area where the correct side was identified and marked. The consent was reviewed with the patient and signed. The history and physical was updated. All questions were answered. Preoperative medications were administered: Acetaminophen 1000mg, Celebrex 400mg, and Gabapentin 300mg. An adductor canal block was then administered by the anesthesia team in the PACU. Gerardo was taken back to the operating room. A spinal anesthestic was then attempted but unsuccessful and therefore a general anesthetic was administered. The patient was placed into the supine position on the operating room table. A nonsterile tourniquet was placed high onto the leg but only used for cementing. Posts were placed for positioning during the procedure. All bony prominences were well padded. Prophylactic antibiotics in the form of cefazolin were administered. 1g of Tranxemic Acid was given intravenously within 30 minutes of incision. The right leg was then prepped with Chloraprep and draped in a standard fashion with impervious stockinette. A second prep with Chloraprep was performed prior to application of Iodine impregnated skin protection. A timeout to confirm correct identity, side and site, procedure, allergies, anesthesia, and medical concerns was performed. With the knee in some flexion, a midline incision was made overlying the knee. Full thickness skin flaps were raised once the extensor mechanism was encountered. These were raised medially and laterally. Any bleeding was controlled with electrocautery. Once the extensor mechanism was fully exposed, a medial parapatellar arthrotomy was performed in a flexed position. All bleeding from the arthrotomy and the geniculate arteries was coagulated. A medial subperiosteal peel was performed with electrocautery to the midcoronal plane. Due to the significant varus deformity the entire medial tibial plateau was exposed. The fat pad was removed while keeping the patellar tendon protected. The anterior distal femur synovium was removed for later visualization. The ACL and PCL were resected and the anterior horn of the lateral meniscus was transected. The knee was then flexed with the patella everted. Large osteophytes from the tibia were removed. Large osteophytes from the femur were removed. Using a step drill, and based on preoperative templating, the femoral canal was entered. This was done with a step drill without any difficulty. The intramedullary distal femoral cut guide was inserted, set to a 5 degree valgus cut and 9 mm cut thickness. The distal femoral cut guide was then held in position and pinned. With the soft tissues protected, the distal cut was performed. This was passed over a few times to ensure a planar cut. I then turned attention to the tibia. The extramedullary guide was placed onto the leg. The distal aspect was slid medial to adjust for position of center of ankle and stay in line with shaft of the tibia. Approximately 3-5 degrees of posterior slope was kept in the proximal cutting guide. The center of the guide was aligned with the PCL. The stylus was used to assess cut thickness. The medial side, most involved side, was set for a 2mm cut. This was then held in position and pinned into place with 2 additional pins and a cross pin for stability. The medial and lateral collateral ligaments were protected and the cut was performed. With this completed, it was assessed and noted to be of appropriate dimensions. The guide was removed. A spacer block was inserted and the knee was brought into extension. The 6mm spacer block provided full extension, without hyperextension and with stability of both the medial and lateral collateral ligaments was assessed. The pins from the femur and the tibia were then removed. The distal femur was then sized. The anterior stylus was placed onto the lateral ridge of the anterior femur. This indicated a size 7 femur. The external rotation of the guide was adjusted to 3 degrees to match the epicondylar axis, perpendicular to Aurelio?s line. The 4-in-1 cutting guide was the placed. The posterior medial femur cut was evaluated and appeared of good thickness. The spacer block was inserted underneath the cutting guide and stability was confirmed in 90 degrees of flexion. An nury wing was used to confirm appropriate position of the anterior cut to avoid notching. This cutting guide was ensured to be flush on the cut surface and then pinned into place with headed pins. While protecting the soft tissues, quad tendon, and collateral ligaments, the anterior and posterior cuts were performed with a saw. The central two pins were removed and the posterior and anterior chamfers were cut next. The notch-cutting guide was placed. This was pinned to lateralize the femoral component as much as possible while keeping it flush on the cut surface. This was then pinned into position. A reciprocating saw was used to make the notch cut. A rasp smoothed the cut surfaces. The medial and lateral menisci were removed. A trial femoral component was then inserted, impacted down to the cut surfaces, and the lug holes were drilled. A provisional trial tibial component was placed and the knee was brought through range of motion. There was noted to be excellent extension and flexion. There was no significant instability. The patella was tracking without thumbs. A size 6mm polyethylene component provided the best range of motion and stability with less than 2mm gapping with medial and lateral stress and full extension without significant hyperextension. The tibial cut surface was fully exposed. The tibia was then sized as a 7. The tibia had been previously marked during trialing to correspond to the center of the tibial component to help with rotation. The trial was aligned to this devin, approximately rotated to the medial 1/3rd of the tibial tubercle. The trial was pinned into place. The tibia was prepared with a reamer and a keel punch and lug holes. The knee was then brought into extension and the patella was measured as 24mm. Using the patellar clamp and cut guide, this was resected to a flat surface with at least 13mm of thickness remaining. The size 38 patella fit the best. This was oriented and then clamped into position. The lugs were drilled. The trial components were removed. The final components were opened on the back table. The periosteal and capsular tissues, especially posteriorly, around the knee were then systematically injected with a periarticular cocktail consisting of 246mg of Ropivacaine, 0.5mg of Epinephrine, 0.08mg of Clonidine, and 30mg of Ketorolac, diluted to 100cc. On the back table, with the implants opened, the cement was mixed. One batch of high viscosity cement was prepared with vacuum assistance. After the cement was ready a small amount was placed on the cut surface of the patella and the patellar button was clamped into position and held. While the cement was hardening, the cementless knee components were placed. Starting with the tibial component, the tibia was subluxed anteriorly and the lug holes of the component were lined up. The tibia was then impacted with an impactor and mallet until the tibial component was in contact with the tibia. Then, the femoral component was inserted. The lug holes were aligned and the component was impacted into position. The posterior stabilized, rotating platform polyethylene was then inserted. The knee was brought into extension and the knee was irrigated with Surgiphor Betadine solution. This was allowed to sit in the knee for 3 minutes and then it was irrigated out with saline. After the cement had finally cured, approximately 15min, the clamp was removed from the patella and the knee was taken through range of motion. The patella was tracking with a no-thumbs technique. The capsule was then reapproximated with a No. 1 Vicryl at multiple locations. The capsule was finally closed with a No. 2 Stratafix, barbed suture. The second dosing of 1g TXA was started. Deep tissues were then reapproximated with 0 Vicryl and 2-0 Vicryl. The skin was closed with a running 3-0 Monocryl in a subcuticular fashion. This was reinforced with skin glue. A Mepilex silver dressing was applied along with a [id number] ELADIA wrap. A CryoCuff was applied. Gerardo was transferred to the hospital bed without difficulty an suffering no apparent complication. Gerardo has a good prognosis. Physical therapy will start today and without restrictions, weight-bearing as tolerated. Aspirin 81mg BID will be used for DVT prophylaxis.
[2022-04-10 12:26] LABS: Abs Immature Grans 0.05 10^3/uL (0.0-0.06); Absolute Basophil Count 0.07 10^3/uL (0.0-0.2); Absolute Eosinophil Count 0.08 10^3/uL (0.0-0.7); Absolute Lymphocyte Count 2.27 10^3/uL (1.2-3.4); Absolute Monocyte Count 0.47 10^3/uL (0.1-0.8); Absolute Neutrophil Count 5.74 10^3/uL (1.2-6.7); Basophils % 0.8; Eosinophils % 0.9; HCT 43.5 % (40.0-50.0); HGB 14.3 g/dL (13.5-17.5); Immature Grans % 0.6; Lymphocytes % 26.2; MCH 30.8 pg (27.0-33.0); MCHC 32.9 % (32.0-36.0); MCV 94 fL (80-95); MPV 9.6 fL (8.0-11.0); Monocytes % 5.4; Neutrophils % 66.1; Platelet Count 221 10^3/uL (130-400); RBC 4.64 10^6/uL (4.36-5.78); RDW-SD 44.4 fL; WBC 8.68 10^3/uL (4.4-10.8)
[2022-04-10 13:05] LABS: ALT 27 U/L (16-63); AST 20 U/L (15-37); Albumin 3.5 g/dL (3.4-5.0); Alkaline Phosphatase 65 U/L (46-116); Anion Gap 8.9 mmol/L (3-11); BUN 27 mg/dL (7-18); Bilirubin, Total 0.3 mg/dL (0.2-1.0); CO2 26.1 mmol/L (21.0-32.0); CREATININE 1.2 mg/dL (0.70-1.30); Calcium 8.5 mg/dL (8.5-10.1); Chloride 104 mmol/L (98-107); Estimated GFR 59.18 (mL/min/1.73m2); Glucose 141 mg/dL (74-106); Magnesium 1.7 mg/dL (1.8-2.4); NT-proBNP 110 pg/mL (<300); Potassium 3.8 mmol/L (3.5-5.1); Sodium 139 mmol/L (136-145); Total Protein 6.9 g/dL (6.4-8.2); Troponin I < 50 ng/L (<or=60)
--- NOTE | 2022-04-10 15:18 | W.ANESPOSTOP ---
Postoperative Evaluation Date, Time and Location Date Performed: 04/10/22 Time Performed: 15:14 Patient Location: Day Surgery Unit Vital Signs Most Recent Imported Vital Signs: Most Recent Vital Signs Temp Pulse Resp BP Pulse Ox 36.2 C L 77 16 135/69 93 04/10/22 14:20 04/10/22 14:20 04/10/22 14:20 04/10/22 14:20 04/10/22 14:20 Pain Score Most Recent Pain Score: Most Recent Pain Score Pain Level 0 04/10/22 14:20 Assessment Mental Status: Awake (Alert & Oriented to Patient Baseline) Airway and Respiratory Function: Patent airway with normal (patient baseline) respiratory exam Cardiovascular Function: Hemodynamically Stable Hydration Status: Adequately Hydrated Nausea & Vomiting: No Nausea or Vomiting Pain: Pt. Denies Any Pain Peripheral Nerve Block: Patient did not receive a nerve block
--- NOTE | 2022-04-10 16:15 | IN_ITS ---
Date of service: 04/10/22 Time of Service: 16:14 PT Notes Visit Reasons: Right knee DJD PT Diagnosis: Status post right TKA Diagnosis: Status post right TKA Weeks Elapsed:? week(s) and 0 day(s) Patient Location:?[facility] Referring Provider:?Gwyn Rich MD Date of Service:?April 10, 2022 4:14 pm PT Notes Visit Reasons:?[place] - R Knee DJD/Osteoarthritis Date: 04/10/2022 Referring: Gwyn Rich MD MD diagnosis: Status post right TKA PT diagnosis: Status post right TKA Subjective: No complaints of nausea, lightheadedness or discomfort Objective: 76-year-old male with osteoarthritis of the right knee status post right TKA earlier today.? Other problems include asthma and hypertension. Functional mobility: Independent with assuming the supine to sitting to standing position.? No complaints of lightheadedness or dizziness in the upright position. Gait: Ambulated approximately 100 feet with a walker, weightbearing as tolerated on right lower extremity.? His gait was stable, so we progress to crutches with a three-point gait weightbearing as tolerated.? He ascension and descended 3 steps using a railing and crutches. Articular: His active assistive right knee motion-10 to 110 degrees and nonpainful. Neuro: Intact Treatment time: 30 minutes Treatment: 58026 Assessment: Tolerated upright position well, and had safe gait with a walker and/or crutches.? He prefers using the crutches, but he is going to borrow a walker from his [facility] in case he needs more support at home. Plan: Session today consisted of getting the patient up and out of bed, gait training with a walker and crutches, stair climbing, etc.? He was also instructed in home exercise program consisting of quad and gluteal sets and ankle pumps.? He will pursue postop rehab locally.? He has a follow appointment with Dr. Rich in 2-week. Disclaimer: This note was created using [employer] voice recognition software. It was reviewed for major content. However, there may be multiple small discrepancies and errors due to the voice recognition aspects of the software.
== END 2022-04-10 16:07 | disposition home or self-care (01) ==
PROVIDERS: Student in an Organized Health Care Education/Training Program; PCP Family Medicine; Visit Provider Student in an Organized Health Care Education/Training Program
PROC: (CPT 27447; principal; 2022-04-10 09:15)
DX: M17.11 Unilateral primary osteoarthritis, right knee (principal); M21.161 Varus deformity, not elsewhere classified, right knee; J45.909 Unspecified asthma, uncomplicated; R73.03 Prediabetes; G47.33 Obstructive sleep apnea (adult) (pediatric); I87.2 Venous insufficiency (chronic) (peripheral); I50.9 Heart failure, unspecified; I11.0 Hypertensive heart disease with heart failure; R94.31 Abnormal electrocardiogram [ECG] [EKG]; R07.89 Other chest pain
CPT/HCPCS: 27447; C1776; 36415; 76942; 80053; 97161; 83735; 83880; 84484; 85025; 93005; 93010; J0690; J1100; J2250; J2405

== ENCOUNTER 2022-04-23 11:48 | Outpatient (CLI) | payer OTHER, SELFPAY ==
--- NOTE | 2022-04-23 09:45 | DI.RAD_ITS ---
Exam(s) XR KNEE RT 2V AP,LAT EXAM: XR KNEE RT 2V AP,LAT CLINICAL HISTORY: ANNUAL F/U R TKA. TECHNIQUE: 2D digital imaging was performed. COMPARISON: CR XR KNEE RT 1V from 04/03/2022 FINDINGS: Two views See satisfactory position alignment of the components of the recently placed right knee prosthesis. No fracture or obvious loosening evident. IMPRESSION: DATA REPOSITORY: RADIATION DOSE DELIVERED:
== END 2022-04-23 11:49 | disposition home or self-care (01) ==
LOC: DIORS 11:48
PROVIDERS: PCP Family Medicine; Referring Provider Family Medicine; Visit Provider Student in an Organized Health Care Education/Training Program
DX: Z96.651 Presence of right artificial knee joint (principal); Z47.1 Aftercare following joint replacement surgery; L03.115 Cellulitis of right lower limb
CPT/HCPCS: 73560

== ENCOUNTER → 2022-05-07 09:19 | Outpatient (BNVA) | payer OTHER, SELFPAY | PROVIDERS: PCP Family Medicine; Referring Provider Family Medicine; Visit Provider Physician Assistant Surgical | DX: Z47.1 Aftercare following joint replacement surgery (principal); Z96.651 Presence of right artificial knee joint; L03.115 Cellulitis of right lower limb ==

== ENCOUNTER → 2022-05-28 09:36 | Outpatient (BNVA) | payer OTHER, SELFPAY | PROVIDERS: PCP Family Medicine; Referring Provider Family Medicine; Visit Provider Student in an Organized Health Care Education/Training Program | DX: Z47.1 Aftercare following joint replacement surgery (principal); Z96.651 Presence of right artificial knee joint ==

== ENCOUNTER 2022-09-14 10:53 | Outpatient (CLI) | payer OTHER, SELFPAY ==
--- NOTE | 2022-09-14 10:45 | DI.RAD_ITS ---
Exam(s) XR STANDING ALIGNMENT EXAM: XR STANDING ALIGNMENT CLINICAL HISTORY: R TKR. TECHNIQUE: 2D digital imaging was performed. COMPARISON: CR XR STANDING ALIGNMENT from 04/03/2022 FINDINGS: Seven views: There has been interval placement of a right knee prosthesis which appears to be in satisfactory posi tion alignment. Again noted is [id number] narrowing of the medial compartment of the opposite-left knee. Lesser de generative changes are seen in the lateral compartment. Hips appear unremarkable as do the ankles. No osseous lesions. Bone density normal. IMPRESSION: Satisfactory appearance of the right knee prosthesis. Advanced degenerative [id number] narrowing of the medial compartment of the opposite-left knee. DATA REPOSITORY: RADIATION DOSE DELIVERED:
== END 2022-09-14 10:54 | disposition home or self-care (01) ==
LOC: DIORS 10:53
PROVIDERS: PCP Family Medicine; Visit Provider Family Medicine
DX: Z96.651 Presence of right artificial knee joint (principal); M17.12 Unilateral primary osteoarthritis, left knee
CPT/HCPCS: 99214; 77073

== ENCOUNTER 2022-09-25 03:56 | Outpatient (CLI) | payer OTHER, SELFPAY ==
[2022-09-25 11:10] LABS: HCT 47.4 % (40.0-50.0); HGB 15.8 g/dL (13.5-17.5); MCH 30.7 pg (27.0-33.0); MCHC 33.3 % (32.0-36.0); MCV 92 fL (80-95); MPV 9.1 fL (8.0-11.0); Platelet Count 273 10^3/uL (130-400); RBC 5.14 10^6/uL (4.36-5.78); RDW 12.9 % (11.8-14.1); RDW-SD 43.9 fL; WBC 9.02 10^3/uL (4.4-10.8)
[2022-09-25 11:43] LABS: Anion Gap 6.5 mmol/L (3-11); BUN 27 mg/dL (7-18); CO2 30.5 mmol/L (21.0-32.0); CREATININE 1.1 mg/dL (0.70-1.30); Calcium 9.1 mg/dL (8.5-10.1); Chloride 100 mmol/L (98-107); Estimated GFR 70.44 (mL/min/1.73m2); Glucose 110 mg/dL (74-106); Potassium 3.6 mmol/L (3.5-5.1); Sodium 137 mmol/L (136-145)
== END 2022-09-25 03:57 | disposition home or self-care (01) ==
LOC: LBO 03:56
PROVIDERS: PCP Family Medicine; Visit Provider Student in an Organized Health Care Education/Training Program
DX: M25.562 Pain in left knee (principal); M17.12 Unilateral primary osteoarthritis, left knee; Z01.818 Encounter for other preprocedural examination; Z01.812 Encounter for preprocedural laboratory examination
CPT/HCPCS: 36415; 80048; 85027

== ENCOUNTER 2022-10-02 06:55 | Day surgery (SDC) | payer OTHER, SELFPAY ==
[2022-10-02] VITALS (11 sets, daily range): BP systolic 104–173; BP diastolic 41–74; PULSE 59–93; RESP 14–23; TEMP 36.1–36.5; O2SAT 92–97; BMI 44.4
--- NOTE | 2022-10-02 07:14 | W.ANESPRE ---
General Info Date of Service Date Performed: 10/02/22 Height: 5 ft 10 in Weight: 140.614 kg Body Mass Index (BMI): 44.4 Surgical Procedure: Operation Date: 10/02/22 09:10 Proposed Procedure Side Surgeon p Knee Total Arthroplasty Cementless PS (sz 7 Tib/Fib) Left Gwyn Rich MD Meds Allergies and Home Medications Allergies Allergy/AdvReac Type Severity Reaction Status Date / Time lisinopril Allergy Mild Wheezing Verified 10/02/22 07:31 aspirin AdvReac Other (See Verified 10/02/22 07:31 Comment) atenolol AdvReac cough Verified 10/02/22 07:31 spironolactone AdvReac cough, n/v Verified 10/02/22 07:31 vardenafil [From Levitra] AdvReac headache/pr Verified 10/02/22 07:31 essure blood pressure pills Allergy Intermediate Uncoded 10/02/22 07:31 Home Medication Medication Instructions Recorded albuterol sulfate 90 mcg/actuation 2 puff inhalation Q6H PRN 11/24/21 aerosol inhaler (Ventolin HFA) chlorthalidone 25 mg tablet 25 mg PO DAILY 11/24/21 valsartan 320 mg tablet 320 mg PO DAILY 11/24/21 acetaminophen 500 mg tablet 1,000 mg PO TID #90 tabs 10/02/22 amlodipine 10 mg tablet 1 tab PO DAILY 10/02/22 aspirin 81 mg tablet,delayed 81 mg PO BID #60 tabs 10/02/22 release celecoxib 200 mg capsule 200 mg PO BID #60 caps 10/02/22 gabapentin 300 mg capsule 300 mg PO QHS #14 caps 10/02/22 oxycodone 5 mg tablet 5 mg PO Q4H PRN pain #20 tabs 10/02/22 pantoprazole 40 mg tablet,delayed 40 mg PO DAILY #30 tabs 10/02/22 release Current Visit Medications: Current Medications Generic Name Dose Route Start Last Admin Trade Name Freq PRN Reason Stop Dose Admin Acetaminophen 1,000 mg 10/02/22 06:00 Acetaminophen 500 Mg Tab PO 10/02/22 16:00 PREOP SHAHID Celecoxib 400 mg 10/02/22 06:00 Celecoxib 200 Mg Cap PO 10/02/22 16:00 PREOP SHAHID Gabapentin 300 mg 10/02/22 06:00 Gabapentin 300 Mg Cap PO 10/02/22 16:00 PREOP SHAHID Tranexamic Acid 1,000 mg/ 60 mls @ 360 mls/hr 10/02/22 06:00 Sodium Chloride IVPB 10/02/22 16:00 PREOP SHAHID Ringer's Solution 1,000 mls @ 80 mls/hr 10/02/22 06:00 IV 10/31/22 23:59 INFUSION SHAHID Cefazolin Sodium 3,000 mg/ 100 mls @ 200 mls/hr 10/02/22 06:00 Sodium Chloride IVPB 10/02/22 16:00 PREOP SHAHID IV Miscellaneous Supplies 1 each 10/02/22 06:00 Iv Access IV 10/31/22 23:59 DIRECTED SHAHID Sodium Chloride 0 ml 10/02/22 06:00 Normal Saline Flush 10 Ml Syr IV 10/31/22 23:59 PRN PRN Sodium Chloride 0 ml 10/02/22 06:00 Normal Saline 10 Ml Vial IJ 10/31/22 23:59 DIRECTED PRN Sterile Water 0 ml 10/02/22 06:00 Water,Injection,Sterile 10 Ml Vial IJ 10/31/22 23:59 DIRECTED PRN PFSH Active Problems Active Problems: Problem Status Onset Code Small bowel obstruction 11/24/13 K56.69 Asthma J45.909 Hypertension I10 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 C44.219 HENNY (obstructive sleep apnea) G47.33 Bilateral primary osteoarthritis of knee M17.0 CHF (congestive heart failure) I50.9 Prediabetes R73.03 Chronic venous insufficiency of lower extremity I87.2 Left knee DJD M17.12 History of right knee joint replacement 04/10/22 Z96.651 Cellulitis of right lower leg L03.115 Medical History Medical History Asthma COVID-19 Essential hypertension History of tobacco use Surgical History Surgical History Abscess of liver Fungal ~2010 Hx of total knee replacement right 04/18 Tobacco Smoking/Tobacco Use Status: Former Tobacco Use Alcohol Alcohol Intake: never Substance Use Substance use: Never Substance use type: does not use Vital Signs and Lab Results Lab Results Blood Type / Crossmatch: No Data to Display Complete Blood Count: White Blood Count 9.02 10^3/uL (4.4-10.8) 09/25/22 10:59 Red Blood Count 5.14 10^6/uL (4.36-5.78) 09/25/22 10:59 Hemoglobin 15.8 g/dL (13.5-17.5) 09/25/22 10:59 Hematocrit 47.4 % (40.0-50.0) 09/25/22 10:59 Platelet Count 273 10^3/uL (130-400) 09/25/22 10:59 Complete Metabolic Panel: Sodium 137 mmol/L (136-145) 09/25/22 10:59 Potassium 3.6 mmol/L (3.5-5.1) 09/25/22 10:59 Chloride 100 mmol/L (98-107) 09/25/22 10:59 Carbon Dioxide 30.5 mmol/L (21.0-32.0) 09/25/22 10:59 BUN 27 mg/dL (7-18) H 09/25/22 10:59 Creatinine 1.1 mg/dL (0.70-1.30) 09/25/22 10:59 Est GFR (CKD-EPI 2020) 70.44 (mL/min/1.73m2) 09/25/22 10:59 Calcium 9.1 mg/dL (8.5-10.1) 09/25/22 10:59 Glucose 110 mg/dL (74-106) H 09/25/22 10:59 Liver Function Panel: No Data to Display Coagulation Panel: No Data to Display Cardiac Panel: No Data to Display Arterial Blood Gas: No Data to Display Venous Blood Gas: No Data to Display Pancreas Panel: No Data to Display Thyroid Panel: No Data to Display Infectious Disease: No Data to Display Blood Cultures: No Data to Display Toxicology Panel: No Data to Display Anesthesia Assessment and Plan Anesthesia History Personal History: No History of Anesthesia Complications Family History: No Family History of Anesthesia Complications Exercise Tolerance Exercise Tolerance: Metabolic Equivalents>4 Pertinent Negatives Pertinent Negatives: No Symptoms of GERD, No Major Cardiovascular Symptoms or Complaints, No Major Pulmonary Symptoms or Complaints and No History of CVA/TIA Cardiac & Pulmonary Exam Cardiac Exam: Normal S1/S2 Heart Sounds Pulmonary Exam: Clear Bilateral Breath Sounds Implantable Cardiac Device Does patient have a Pacemaker or an ICD?: No Airway Exam Known Difficult Airway: No Mallampati Class: 1 Mouth Opening: Normal (> 3cm) Thyromental Distance: Greater than 3 cm Neck Range of Motion: Limited ROM Neck Circumference: Thick Teeth Condition: Generalized Poor Dentition ASA Classification ASA Score: ASA 3 Emergency Case?: No NPO Status NPO Status: NPO Clears >2 hours, Solids >8 hours Anesthesia Plan Resuscitation Status: Full Code Anesthesia Technique: Spinal Anesthesia Airway Planned: Natural Airway Pain Management: Surgeon and patient request nerve block Monitors Used: Standard Monitors
--- NOTE | 2022-10-02 07:29 | PDOC.DSDIS_ITS ---
Date of service: 10/02/22 Time of Service: 07:29 Discharge Plan Disposition Patient Disposition: HOME Condition: Good Discharge Details Reason For Visit: Left Knee DJD Attending Provider: Gwyn Rich Primary Care Provider: Roderick Ryan Home Meds and New Rx's Prescriptions: New celecoxib 200 mg capsule 200 mg PO BID Qty: 60 0RF aspirin 81 mg tablet,delayed release (DR/EC) 81 mg PO BID Qty: 60 0RF acetaminophen 500 mg tablet 1,000 mg PO TID Qty: 90 3RF pantoprazole 40 mg tablet,delayed release (DR/EC) 40 mg PO DAILY Qty: 30 0RF gabapentin 300 mg capsule 300 mg PO QHS Qty: 14 0RF oxycodone 5 mg tablet 5 mg PO Q4H MDD 6 tabs PRN (Reason: pain) Qty: 20 0RF cefadroxil 500 mg capsule 500 mg PO BID Qty: 14 0RF Continued albuterol sulfate [Ventolin HFA] 90 mcg/actuation HFA aerosol inhaler 2 puff inhalation Q6H PRN valsartan 320 mg tablet 320 mg PO DAILY chlorthalidone 25 mg tablet 25 mg PO DAILY Discontinued acetaminophen 500 mg tablet 500 mg PO Q6H PRN (Reason: pain) Qty: 60 2RF ibuprofen [Advil] 200 mg Tablet 1,000 mg PO Q6H PRN No Action amlodipine 10 mg tablet 1 tab PO DAILY Discharge Instructions Additional Instructions: Total Knee Discharge Instructions Activity: The most important activity is to walk and to work on gentle motion (both flexion and extension). You should try to take short walks a few times a day. It is important that when resting you work on keeping the knee straight. Avoid putting a pillow behind the knee as this will encourage flexion. Work on range of motion exercises as provided by Physical Therapy. - Start outpatient physical therapy within 2 weeks. - You should wear the TRUMAN hose on both legs for 2 weeks. You may remove these at night. You may also use any compression sock in place of the TRUMAN hose. - Utilize [employer] to review exercises, see videos on exercises and obtain basic information pertaining to your surgery and your recovery. Dressing: Remove the Jovi wrap by 2 days after your surgery and put on the TRUMAN stocking given to you from the hospital. Keep the surgical dressing (underneath the JOVI wrap) in place for at least one week. After the first week it may be removed and replaced with light gauze and tape or nothing. The wound and dressing may get wet after 3 days but avoid soaking the dressing or otherwise it will need to be changed. Many people prefer covering the dressing with cling wrap (saran wrap) to minimize it from getting soaked. If it gets wet, just pat dry. If it starts to peel off then it will need to be changed. Medications: - You should take Tylenol and anti-inflammatory Celebrex as your primary pain control medications. If the Celebrex is too expensive or not covered, please call the office for another alternative (Advil/Ibuprofen or Naproxen/Aleve) - You have been prescribed a stronger pain medication Oxycodone for breakthrough pain, take as needed as prescribed. - You have also been prescribed a stomach acid reduction agent Pantoprozole to help reduce stomach acid and reflux. - You have been prescribed Gabapentin to take at night for restlessness and nerve pain. - You will be taking Aspirin 81mg twice a day for DVT prevention unless instructed otherwise. - If you have constipation you should take Colace or Miralax (both [id number]). It takes most people 3-4 days to have a bowel movement. Follow-up: 2 weeks If you have any acute concerns or questions, please do not hesitate to contact the office at [phone]. You may contact Dr. Rich with any questions after hours through the hospital at [phone] or on his cell phone at [phone]. Referrals: Gwyn Rich MD [ [facility] STAFF PHYSICIAN] - Equipment/Supplies: Walker Activity:: Elevate Remove Dressings/Wound Care:: Do Not Remove Shower/Bathe:: 72 hours Equipment/Supplies:: Walker Diet:: As Tolerated DS: Diagnosis Discharge Diagnosis (1) Left knee DJD: Status: Acute
[2022-10-02] MEDS: Celecoxib 200 MG CAP 400 MG PO (08:02)
[2022-10-02] MEDS: Acetaminophen 500 MG TAB 1000 MG PO (08:02)
[2022-10-02] MEDS: Gabapentin 300 MG CAP PO (08:02)
[2022-10-02] MEDS: Lactated Ringers 1,000 ML 80 ML IV (08:25)
--- NOTE | 2022-10-02 08:52 | W.ANESNERVE ---
Nerve Block Single Injection Procedure Date and Time Date Performed: 10/02/22 Procedure Start: 08:52 Location Where Procedure Performed Procedure Location: Day Surgery Unit Reason Performed: Postoperative Analgesia Requesting Provider: Gwyn Rich Timeout Performed Timeout Performed: Yes Monitoring Used ECG, Blood Pressure and SpO2 Sterility Sterility: Hand Hygiene, Surgical Cap, Surgical Mask, Sterile Gloves and Chlorhexidine Sedation Given During Procedure Sedation Given (Indicate Dose Given): No Sedation given Patient Mental Status Patient Mental Status: Awake Nerve Block 1st Nerve Block: Laterality: Left Block Type: Adductor Canal Needle / Catheter Used: 100mm SonoPlex II Local Anesthetic Bolus (Indicate Dose Given): Lidocaine used for local infiltration of skin, Injected in 3-5ml increments after negative blood aspiration and Bupivacaine 0.25% Dose:: 15 ml Additives (Indicate Dose Given): None Ultrasound: Sterile probe cover and gel used Ultrasound Image Saved?: Yes Nerve Stimulator: Not Used Paresthesia: None Procedure Tolerated: No Complications and Patient tolerated well Procedure Outcome: Successful Performed By: Richard Duran
[2022-10-02] MEDS: ceFAZolin 3,000 MG in Normal Saline 100 ML 200 MG IVPB (09:07)
--- NOTE | 2022-10-02 10:37 | ROE_ITS ---
Date of service: 10/02/22 Time of Service: 10:45 Operative Note Operative Note DATE OF PROCEDURE: 10/02/22 PRE-OP DIAGNOSIS: Left Knee Osteoarthritis POST-OP DIAGNOSIS: same PROCEDURE: Left Total Knee Replacement SURGEON: Gwyn Rich HARDWARE DEVELOPER: Devin Benz ANESTHESIA TYPE: Spinal Refer to Anesthesia Record ESTIMATED BLOOD LOSS: 100 PATHOLOGY: none sent TOURNIQUET TIME: 0 COMPLICATIONS: None Patient was transported to: PACU Patient's condition: stable Implants: 1. Depuy Attune Cementless Posterior Stabilized Femoral Component, Size 7 2. Depuy Attune Cementless Rotating Platform Tibial Component, Size 7 3. Depuy Attune 7x7 PS/RP Poly 4. Depuy Attune Patellar Component, Size 38 Indications: I have seen Sea in clinic for symptoms of knee arthritis, confirmed with radiographic findings. He has exhausted nonoperative methods and was having significant limitations in daily function and desired better function and less pain. I discussed the technical details of a knee replacement. He had a successful replacement on the right side. I explained the risks of the procedure to include, but not limited to, bleeding, infection, pain, stiffness, fracture, damage to nerves and vessels, damage to muscles and tendons, loosening, need for repeat procedure, blood clot and cardiopulmonary demise. Despite these risks, Sea elected to proceed. Findings: There was significant signs of arthritis throughout the knee involving all 3 compartments and with notable deformity of the medial tibia. Procedure Description: Sea was greeted in the preoperative holding area where the correct side was identified and marked. The consent was reviewed with the patient and signed. The history and physical was updated. All questions were answered. Preoperative medications were administered: Acetaminophen 1000mg, Celebrex 400mg, and Gabapentin 300mg. An adductor canal block was then administered by the anesthesia team in the PACU. He was taken back to the operating room. A spinal anesthestic was then administered. The patient was placed into the supine position on the operating room table. A nonsterile tourniquet was placed high onto the leg but only used for cementing. Posts were placed for positioning during the procedure. All bony prominences were well padded. Prophylactic antibiotics in the form of Cefazolin were administered. 1g of Tranxemic Acid was given intravenously within 30 minutes of incision. The left leg was then prepped with Chloraprep and draped in a standard fashion with impervious stockinette. A second prep with Chloraprep was performed prior to application of Iodine impregnated skin protection. A timeout to confirm correct identity, side and site, procedure, allergies, anesthesia, and medical concerns was performed. With the knee in some flexion, a midline incision was made overlying the knee. Full thickness skin flaps were raised once the extensor mechanism was encountered. These were raised medially and laterally. Any bleeding was controlled with electrocautery. Once the extensor mechanism was fully exposed, a medial parapatellar arthrotomy was performed in a flexed position. All bleeding from the arthrotomy and the geniculate arteries was coagulated. A medial subperiosteal peel was performed with electrocautery to the midcoronal plane. Due to the significant varus de formity the entire medial tibial plateau was exposed. The fat pad was removed while keeping the patellar tendon protected. The anterior distal femur synovium was removed for later visualization. The ACL and PCL were resected and the anterior horn of the lateral meniscus was transected. The knee was then flexed with the patella everted. Large osteophytes from the tibia were removed. Large osteophytes from the femur were removed. Using a step drill, and based on preoperative templating, the femoral canal was entered. This was done with a step drill without any difficulty. The intramed ullary distal femoral cut guide was inserted, set to a 5 degree valgus cut and 9mm cut thickness. The distal femoral cut guide was then held in position and pinned. With the soft tissues protected, the distal cut was performed. This was passed over a few times to ensure a planar cut. I then turned attention to the tibia. The extramedullary guide was placed onto the leg. The distal aspect was slid medial to adjust for position of center of ankle and stay in line with shaft of the tibia. Approximately 3-5 degrees of posterior slope was kept in the proximal cutting guide. The center of the guide was aligned with the PCL. The stylus was used to assess cut thickness. The medial side, most involved side, was set for a 3mm cut, corresponding to 8mm laterally. This was then held in position and pinned into place with 2 additional pins and a cross pin for stability. The medial and lateral collateral ligaments were protected and the cut was performed. With this completed, it was assessed and noted to be of appropriate dimensions. The guide was removed. A spacer block was inserted and the knee was brought into extension. The 6mm spacer block provided full extension, without hyperextension and with stability of both the medial and lateral collateral ligaments was assessed. The pins from the femur and the tibia were then removed. The distal femur was then sized. The anterior stylus was placed onto the lateral ridge of the anterior femur. This indicated a size 7 femur. The external rotation of the guide was adjusted to 0 degrees to match the epicondylar axis, perpendicular to Glouster?s line. The 4-in-1 cutting guide was the placed. The posterior medial femur cut was evaluated and appeared of good thickness. The spacer block was inserted underneath the cutting guide and stability was confirmed in 90 degrees of flexion. An nury wing was used to confirm appropriate position of the anterior cut to avoid notching. This cutting guide was ensured to be flush on the cut surface and then pinned into place with headed pins. While protecting the soft tissues, quad tendon, and collateral ligaments, the anterior and posterior cuts were performed with a saw. The central two pins were removed and the posterior and anterior chamfers were cut next. The notch-cutting guide was placed. This was pinned to lateralize the femoral component as much as possible while keeping it flush on the cut surface. This was then pinned into position. A reciprocating saw was used to make the notch cut. A rasp smoothed the cut surfaces. The medial and lateral menisci were removed. A trial femoral component was then inserted, impacted down to the cut surfaces, and the lug holes were drilled. A provisional trial tibial component was placed and the knee was brought through range of motion. The polyethylene was trialed until there was good flexion and extension with excellent stability to the medial and lateral collaterals. The patella was tracking without thumbs. A size 7mm polyethylene component provided the best range of motion and stability with less than 2mm gapping with medial and lateral stress and full extension without significant hyperextension. The tibial cut surface was fully exposed. The tibia was then sized as a 7. The tibia had been previously marked during trialing to correspond to the center of the tibial component to help with rotation. The trial was aligned to this devin, approximately rotated to the medial 1/3rd of the tibial tubercle. The trial was pinned into place. The tibia was prepared with a reamer and a keel punch and lug holes. The knee was then brought into extension and the patella was measured as 24mm. Using the patellar clamp and cut guide, this was resected to a flat surface with at least 13mm of thickness remaining. The size 38 patella fit the best. This was oriented and then clamped into position. The lugs were drilled. The trial components were removed. The final components were opened on the back table. The periosteal and capsular tissues, especially posteriorly, around the knee were then systematically injected with a periarticular cocktail consisting of 246mg of Ropivacaine, 0.5mg of Epinephrine, 0.08mg of Clonidine, and 30mg of Ketorolac, diluted to 100cc. On the back table, with the implants opened, the cement was mixed. One batch of high viscosity cement was prepared with vacuum assistance. After the cement was ready a small amount was placed on the cut surface of the patella and the patellar button was clamped into position and held. While the cement was harde michael, the cementless knee components were placed. Starting with the tibial component, the tibia was subluxed anteriorly and the lug holes of the component were lined up. The tibia was then impacted with an impactor and mallet until the tibial component was in contact with the tibia. Then, the femoral component was inserted. The lug holes were aligned and the component was impacted into position. The tibia was then subluxed forward and the final implant was placed. The knee was irrigated with Surgiphor Betadine solution. This was allowed to sit in the knee for 3 minutes and then it was irrigated out with saline. After the cement had finally cured, approximately 15min, the clamp was removed from the patella and the knee was taken through range of motion. The patella was tracking with a no-thumbs technique. The capsule was then reapproximated with a No. 1 Vicryl at multiple locations. The capsule was finally closed with a No. 2 Stratafix, barbed suture. The second dosing of 1g TXA was started. Deep tissues were then reapproximated with 0 Vicryl and 2-0 Vicryl. The skin was closed with a running 3-0 Monocryl in a subcuticular fashion. This was reinforced with skin glue. A Mepilex silver dressing was applied along with a [id number] ELADIA wrap. A CryoCuff was applied. Sea was transferred to the hospital bed without difficulty an suffering no apparent complication. He has a good prognosis. Physical therapy will start today and without restrictions, weight-bearing as tolerated. Aspirin 81mg BID will be used for DVT prophylaxis. We will also use an extended antibiotic prohphylaxis given his morbid obesity and chronic edema.
[2022-10-02] MEDS: HYDROmorphone 2 MG/ML SYR IVP ×2 (11:43→11:58)
[2022-10-02] MEDS: Normal Saline 10 ML VIAL IJ (11:43)
--- NOTE | 2022-10-02 13:19 | IN_ITS ---
Date of service: 10/02/22 Time of Service: 13:19 PT Notes Visit Reasons: Left Knee DJD Physical Therapy Day Surgery Initial Evaluation Date: 10/02/2022 Referring Doctor: ABDIRIZAK Golden PT Orders: PT CONSULT: S/P Ortho surgery Precautions: WBAT on L LE with AD. Patient Profile/Admitting Diagnosis: Gerardo is a 76-year-old male with degenerative joint disease of the left knee and is status post total knee arthroplasty on postoperative day 1. PMHX: All Active Problems? Cellulitis of right lower leg (Acute) History of right knee joint replacement (Acute 04/10/22) Left knee DJD (Acute) Chronic venous insufficiency of lower extremity (Acute) left legPrediabetes (Acute) CHF (congestive heart failure) (Chronic) Bilateral primary osteoarthritis of knee (Acute) HENNY (obstructive sleep apnea) (Chronic) Denies diagnosis and snoring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 (Acute) Small bowel obstruction (Acute 11/24/13) Asthma (Chronic) Hypertension (Chronic) Medical History Asthma COVID-19 Essential hypertension History of tobacco use Surgical History? Abscess of liver Fungal ~2010 Social History/Home Situation: Lives with in a private home that has a ramp to enter. He also has three steps through the garage and another 4 steps that lead to the entrance door alternately. Has a flight of steps to the second floor where his bedroom is. Works as a tractor trailer truck driver. Equipment Owned/DME: Bilateral axillary crutches, single point cane Subjective: Reports 3-4/10 pain in the L knee that did not limit today's ambulation distance. Also states of stifness that wore off with ambulation. Denies headache, chest pain, and lightheadedness throughout. Objective: General Observation: Seated on bedside recliner. ELADIA wraps to L LE. TEDS to R leg. Mental Status: Alert and oriented x 4 Pain: 3-4/10 in the L knee ROM: Right Lower Extremity: Hip flexion WFL. Hip abduction WFL. Knee flexion WFL. Ankle dorsiflexion WFL. Ankle plantarflexion WFL. Left Lower Extremity: Hip flexion WFL. Hip abduction WFL. Knee flexion 20 degrees through 90 degrees. Knee extension -20 degrees. Ankle dorsiflexion WFL. Ankle plantarflexion WFL. Strength: Right Lower Extremity: Hip flexors 5/5. Hip abductors 5/5. Knee flexors 5/5. Knee extensors 5/5. Ankle dorsiflexors 5/5. Ankle plantarflexors 5/5. Left Lower Extremity:Hip flexors 5/5. Hip abductors 5/5. Knee flexors 3-/5. Knee extensors 3-/5. Ankle dorsiflexors 5/5. Ankle plantarflexors 5/5. Sensation: Intact as to pain and light pressure in B LE Bed Mobility/Transfers: Supine to sit stand by assist Sit to stand stand by assist Stand to sit stand by assist Bed to chair stand by assist Gait: 150 feet using front-wheeled walker with stand by assist, step-to gait pattern. Inadequate flexion in L knee during swing but no LOB nor path deviation. Good quad activation. Stairs: Up and down 6 x4-inch steps and 4 x 6-inch steps while holding onto B rails with step-to gait pattern requiring stand by assist and minimal cueing for correct technique. THERA EX: Gluteal sets x 5 Quadriceps sets x 5 Heel slides x 5 SLR x 5 with extensor lag noted LAQ x 5 Ankle PF/DF Balance: Static Sitting: Normal Dynamic Sitting: Normal Static Standing: Fair Dynamic Standing: Fair Special Tests: Mobility Limitations Standardized Measure [facility] AM-PAC 6 clicks Basic Mobility Inpatient Short Form: Raw Score: 23 CMS Score: 11% deficit Informed Consent/Education: Patient instructed in purpose of PT consult. Packet containing TKA exercise protocol has been given to patient. Education and training on initial set of exercises that can be done at home have been completed with patient. Assessment: Gerardo requires the use of FWW for all mobility ADLs to maximize independecen and reduce fall risk. Patient presents with clinical signs and symptoms consistent with current/admitting diagnoses that have resulted to mobility limitations, gait instability, generalized weakness, and impairment of motor control as demonstrated by the following impairment level findings: 1. Decreased strength to left knee major muscle groups 2. Impaired standing balance 3. Limitation of joint range of motion in left knee Impairments are contributing to the following functional limitations: 1. Inability to safely ambulate without assistive device 2. Increase completion time for mobility ADL performance 3. Increased fall risk Patient is assessed as a 05644 moderate complexity based on the following: History: 76-year-old male with impairment level findings, functional limitations, and past medical history as indicated above Examination: Demonstrable impairment in strength, balance, and mobility level with underlying impairments and functional limitations as documented above Presentation: Evolving Decision Makin moderate Goals: N/A. PT evaluation and 1-2 treatment sessions only for functional mobility training using recommended AD and for HEP instruction. Plan of Care/Treatment Plan: N/A. PT evaluation and 1-2 treatment session only for functional mobility training using recommended AD and for HEP instruction. DISCHARGE RECOMMENDATIONS: Home when medically cleared by orthopedic surgeon. Patient will benefit from outpatient physical therapy services in order to optimize functional mobility outcomes and facilitate independent community ambulation without an assistive device. TREATMENT CODE/TIME: 67815 x 28 minutes beginning at 13:19 PM. Thank you for the opportunity to participate in the care of this patient. Maria Dolores Barrientos PT, DPT, CLT [facility] [place], [place]
--- NOTE | 2022-10-02 14:17 | W.ANESPOSTOP ---
Postoperative Evaluation Date, Time and Location Date Performed: 10/02/22 Time Performed: 13:35 Patient Location: Day Surgery Unit Vital Signs Most Recent Imported Vital Signs: Most Recent Vital Signs Temp Pulse Resp BP Pulse Ox 36.1 C L 69 17 130/70 92 10/02/22 12:55 10/02/22 12:55 10/02/22 12:55 10/02/22 12:55 10/02/22 12:55 Pain Score Most Recent Pain Score: Most Recent Pain Score Pain Level 2 10/02/22 12:55 Assessment Mental Status: Awake (Alert & Oriented to Patient Baseline) (Postoperative delirium cleared. Patient is alert, oriented, and appropriate. ) Airway and Respiratory Function: Patent airway with normal (patient baseline) respiratory exam Cardiovascular Function: Hemodynamically Stable Hydration Status: Adequately Hydrated Nausea & Vomiting: No Nausea or Vomiting Pain: Pain is tolerable per patient Peripheral Nerve Block: Regional nerve block not resolved at time of post operative discharge
== END 2022-10-02 14:33 | disposition home or self-care (01) ==
PROVIDERS: PCP Family Medicine; Visit Provider Student in an Organized Health Care Education/Training Program
PROC: (CPT 27447; principal; 2022-10-02 09:00)
DX: M17.12 Unilateral primary osteoarthritis, left knee (principal); I11.0 Hypertensive heart disease with heart failure; J45.909 Unspecified asthma, uncomplicated; I50.9 Heart failure, unspecified
CPT/HCPCS: 27447; C1776; 76942; 97162; J0690; J1100; J1170; J2405

== ENCOUNTER 2022-10-15 10:15 | Outpatient (CLI) | payer OTHER, SELFPAY ==
--- NOTE | 2022-10-15 09:45 | DI.RAD_ITS ---
Exam(s) XR KNEE LT 1V XR STANDING ALIGNMENT EXAM: XR STANDING ALIGNMENT CLINICAL HISTORY: s/p left TKA. TECHNIQUE: 2D digital imaging was performed. Standing AP views were performed from the pelvis throu gh the ankles. Single lateral view left knee COMPARISON: CR XR STANDING ALIGNMENT from 09/14/2022 CR XR KNEE LT 1V from 10/15/2022 FINDINGS: BONES: No acute fracture is present. No bony destructive lesion is seen. Leg length discrepancy: Mild, left foot femoral head projecting superior to the right by few millimet ers. JOINTS: Knees: Bilateral total knee prostheses. Patient is status post placement of the left knee prosthesis since the prior exam. The alignment appears satisfactory. The ankle joints are unremarkable. The hip joints are unremarkable. SOFT TISSUE: Bilateral lower leg edema, left greater than right. IMPRESSION: Bilateral total knee prostheses.. Mild leg length discrepancy. DATA REPOSITORY: RADIATION DOSE DELIVERED:
== END 2022-10-15 10:16 | disposition home or self-care (01) ==
LOC: DIORS 10:16
PROVIDERS: PCP Family Medicine; Referring Provider Family Medicine; Visit Provider Physician Assistant
DX: Z96.652 Presence of left artificial knee joint (principal); Z47.1 Aftercare following joint replacement surgery; L03.116 Cellulitis of left lower limb
CPT/HCPCS: 73560; 77073

== ENCOUNTER → 2022-11-01 10:06 | Outpatient (BNVA) | payer OTHER, SELFPAY | PROVIDERS: PCP Family Medicine; Referring Provider Family Medicine; Visit Provider Student in an Organized Health Care Education/Training Program | DX: Z47.1 Aftercare following joint replacement surgery (principal); L03.115 Cellulitis of right lower limb; R60.0 Localized edema; L03.116 Cellulitis of left lower limb; Z96.652 Presence of left artificial knee joint ==

== ENCOUNTER → 2022-11-09 09:48 | Outpatient (BNVA) | payer OTHER, SELFPAY | PROVIDERS: PCP Family Medicine; Referring Provider Family Medicine; Visit Provider Student in an Organized Health Care Education/Training Program | DX: Z47.1 Aftercare following joint replacement surgery (principal); Z96.652 Presence of left artificial knee joint; L03.116 Cellulitis of left lower limb ==

== ENCOUNTER → 2022-11-15 10:06 | Outpatient (BNVA) | payer OTHER, SELFPAY | PROVIDERS: PCP Family Medicine; Referring Provider Family Medicine; Visit Provider Physician Assistant | DX: Z47.1 Aftercare following joint replacement surgery (principal); R60.0 Localized edema; Z96.652 Presence of left artificial knee joint; L03.116 Cellulitis of left lower limb ==

== ENCOUNTER 2022-12-04 01:54 | Emergency (ER) | payer OTHER, SELFPAY ==
--- NOTE | 2022-12-04 01:58 | ED.GENADUL_ITS ---
Discharge Plan Disposition Patient Disposition: Home Condition: Stable Discharge Details Clinical Impression: Lumbar strain, Lumbar paraspinal muscle spasm Primary Care Provider: Roderick Ryan ED Provider: Janie Lopez Home Meds and New Rx's Prescriptions: New methocarbamol 500 mg tablet 500 mg PO Q6H PRN (Reason: muscle spasm) Qty: 14 0RF prednisone 20 mg tablet See Rx Instructions .ROUTE .COMPLEX Qty: 12 0RF Rx Instructions: Take 3 tabs daily for 2 days, then 2 tabs daily for 2 days, then 1 tab daily for 2 days Continued furosemide [Lasix] 40 mg tablet 40 mg PO DAILY Qty: 5 0RF Rx Instructions: Take one tablet once daily for 5 days metoprolol tartrate 50 mg tablet 50 mg PO DAILY cephalexin 500 mg tablet 500 mg PO QID Qty: 56 0RF Rx Instructions: TAKE 1 TABLET BY MOUTH 4 TIMES PER DAY FOR 14 DAYS albuterol sulfate [Ventolin HFA] 90 mcg/actuation HFA aerosol inhaler 2 puff inhalation Q6H PRN valsartan 320 mg tablet 320 mg PO DAILY chlorthalidone 25 mg tablet 25 mg PO DAILY amlodipine 10 mg tablet 1 tab PO DAILY Discharge Instructions Instructions: Low Back Strain (ED), Muscle Spasm (ED) Additional Instructions: Your presentation appears likely consistent with a muscle strain and spasm in your lower back. Alternate ice and heat to the affected area(s) several times daily for 20 minutes at a time. Alternate tylenol and motrin as needed and directed for pain. Take the oxycodone for pain not relieved with Tylenol or Motrin. Prescriptions for steroids and muscle relaxers have been sent electronically to your pharmacy. Follow-up with your primary care doctor in 1 week. Return to the emergency department with any worsening or new concerning symptoms. Discharge Data Discharge Physician: Janie Lopez Medical Decision Making 76-year-old male with a history of obesity, hypertension, CHF, obstructive sleep apnea, prediabetes presents for left-sided lower back pain since bending over to put on his shoes last week. No urinary or cauda equina symptoms. Blood pressure hypertensive, remainder vitals within normal limits. Patient appears uncomfortable and pain appears spasm-like as he appears to have episodes while sitting on the stretcher. History and presentation does not appear consistent with kidney stone, UTI, AAA, fracture. History and presentation appears most likely consistent with musculoskeletal pain considering onset while bending over and appears to have a spasm-like component. His left-sided lower back is tender to palpation. There is no evidence of rash, trauma or cellu litis. He has no focal deficits. Patient declines IM injection. We will give a dose of p.o. Motrin, prednisone, Valium and oxycodone. We will give oxycodone to go for pain relief as needed. Prescriptions for prednisone and methocarbamol sent electronically to his pharmacy. Advised to follow up with the primary care doctor for re-evaluation. Usual and customary return precautions given prior to discharge. Medical Records Medical records reviewed: Yes I reviewed the patient's medical records. HPI General Mode of arrival: ambulatory . Date/Time Provider Initiated Documentation: 12/04/22 01:57 . Limitations to Documentation: no limitations . Information obtained by: patient . HPI Narrative: Patient is a 76-year-old male with a history of obesity, hypertension, CHF, obstructive sleep apnea, history of bilateral knee replacements within the past year who presents to the ED with a complaint of left-sided lower back pain for the past week. He states last week he was bending over to tie his shoes when he developed sudden onset of left-sided lower back pain. Patient states the pain has worsened since then and is worse when sitting or laying down. Patient states getting up and walking somewhat helps the pain. He last took Advil yesterday without relief. He states he tried to sleep tonight but his pain bec adis worse. He denies any abdominal pain, urinary symptoms, bowel or bladder incontinence, saddle anesthesia, leg weakness or numbness. Related Data Home Medications Medication Instructions Recorded Confirmed albuterol sulfate 90 mcg/actuation 2 puff inhalation Q6H PRN 11/24/21 11/15/22 aerosol inhaler (Ventolin HFA) chlorthalidone 25 mg tablet 25 mg PO DAILY 11/24/21 11/15/22 valsartan 320 mg tablet 320 mg PO DAILY 11/24/21 11/15/22 amlodipine 10 mg tablet 1 tab PO DAILY 10/02/22 11/15/22 furosemide 40 mg tablet (Lasix) 40 mg PO DAILY #5 tabs 10/15/22 11/15/22 cephalexin 500 mg tablet 500 mg PO QID #56 tabs 11/09/22 11/15/22 metoprolol tartrate 50 mg tablet 50 mg PO DAILY 11/15/22 11/15/22 methocarbamol 500 mg tablet 500 mg PO Q6H PRN muscle spasm #14 12/04/22 tabs prednisone 20 mg tablet See Rx Instructions .Route 12/04/22 .COMPLEX #12 tabs Previous Rx's Medication Instructions Recorded furosemide 40 mg tablet (Lasix) 40 mg PO DAILY #5 tabs 10/15/22 cephalexin 500 mg tablet 500 mg PO QID #56 tabs 11/09/22 methocarbamol 500 mg tablet 500 mg PO Q6H PRN muscle spasm #14 12/04/22 tabs prednisone 20 mg tablet See Rx Instructions .Route 12/04/22 .COMPLEX #12 tabs Allergies Allergy/AdvReac Type Severity Reaction Status Date / Time lisinopril Allergy Mild Wheezing Verified 11/15/22 10:28 aspirin AdvReac Other (See Verified 11/15/22 10:28 Comment) atenolol AdvReac cough Verified 11/15/22 10:28 spironolactone AdvReac cough, n/v Verified 11/15/22 10:28 vardenafil [From Levitra] AdvReac headache/pr Verified 11/15/22 10:28 essure blood pressure pills Allergy Intermediate Uncoded 11/15/22 10:28 General Stated Complaint: Nk/Back Pain LUCITA: 2 Review of Systems All systems reviewed & are unremarkable except as noted in HPI and below Constitutional Constitutional: Reports as per HPI, Denies chills and Denies fever(s) Eyes Eyes: Denies blurry vision ENT Ears, Nose, Mouth, and Throat: Denies dizziness, Denies sore throat and Denies throat swelling Cardiovascular Cardiovascular: Denies chest pain and Denies dyspnea Respiratory Respiratory: Denies cough and Denies dyspnea Gastrointestinal Gastrointestinal: Denies abdominal pain, Denies diarrhea and Denies vomiting Genitourinary Genitourinary: Denies hematuria and Denies dysuria Musculoskeletal Musculoskeletal: Reports back pain and Denies numbness Integumentary/Breasts Skin/Breast: Denies lesions and Denies rash Neurologic Neurologic: Denies dizziness, Denies localized weakness and Denies numbness Allergic/Immunologic Allergic/Immunologic: Denies throat swelling PFSH All Active Problems (Updated 12/04/22 @ 02:26 by Janie Lopez DO) Lumbar strain (Acute) Lumbar paraspinal muscle spasm (Acute) Left leg cellulitis (Acute) History of total left knee replacement (TKR) (Acute 10/02/22) Small bowel obstruction (Acute 11/24/13) Asthma (Chronic) Hypertension (Chronic) 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 Father No problems noted. Social History Smoking/Tobacco Use Status: Former Tobacco Use Quit Date: 10/28/94 Smoking risk assessment performed?: Yes Alcohol Intake: never Drug use: Never Substance use type: does not use Current gender identity: male Do you feel safe at home: Yes Do you feel safe in your relationship?: Yes Exam Const General: cooperative, not healthy appearing and uncomfortable Orientation: alert, awake and oriented x3 HENMT Head: normal to inspection Face and sinus: normal facial exam Eyes General: appearance normal, both eyes and all related structures Pupils: PERRL EOM: EOM intact bilaterally Neck Neck: normal visual inspection and No submandibular swelling Lymphatic: no lymphadenopathy noted Chest Chest: normal inspection of the chest and no tenderness Resp Effort & Inspection: normal respiratory effort and able to speak in complete sentences Auscultation: clear to auscultation bilaterally Cardio Rate: regular rate Rhythm: regular rhythm GI Inspection: normal to inspection and obesity Palpation: soft, not firm, not rigid and nontender Auscultation: hypoactive bowel sounds Back/Spine/Pelvis Back: no CVA tenderness Thoracic/Lumbar Spine: straight leg raise negative bilaterally, No thoracic spinal tenderness and No lumbar spinal tenderness Back/spine/pelvis image: 1. Localized area of tenderness to the left lateral inferior thoracic and left lateral superior lumbar region. There is no evidence of edema, erythema, ecchymosis, rash, lesions or step-off. Skin General skin exam: no rashes or lesions noted Neuro General: patient alert, patient awake and patient oriented x3 Cognition: normal cognition Speech: speech normal Motor: muscle tone normal throughout and strength 5/5 throughout Sensory Exam: no sensory deficits noted DTR's: Rt Patellar: 1+, Lt Patellar: 1+, Rt Ankle: 1+ and Lt Ankle: 1+ Plantar Reflexes: Equivocal: bilateral (Negative babinski b/l ) Extrem General: normal to inspection, full ROM, capillary refill normal, no calf ten derness bilaterally and no edema Psych Appearance: grossly normal Mental Status: mental status grossly normal Speech and Movement: speech and movement normal Affect: normal affect
[2022-12-04 01:59] VITALS: BP 180/74; PULSE 88; RESP 20; TEMP 37; O2SAT 97
[2022-12-04] MEDS: predniSONE 20 MG TAB 60 MG PO (02:32)
[2022-12-04] MEDS: Ibuprofen 600 MG TAB PO (02:33)
[2022-12-04] MEDS: diazePAM 5 MG TAB PO (02:34)
[2022-12-04] MEDS: oxyCODONE 5 MG TAB PO (02:34)
[2022-12-04 02:43] VITALS: BP 172/70; PULSE 86; RESP 20; O2SAT 97
== END 2022-12-04 02:41 | disposition home or self-care (01) ==
PROVIDERS: Emergency Provider Physician Assistant; PCP Family Medicine
DX: S39.012A Strain of muscle, fascia and tendon of lower back, initial encounter (principal); X50.1XXA Overexertion from prolonged static or awkward postures, initial encounter; M62.830 Muscle spasm of back
CPT/HCPCS: 99283; 99284; J7512

== ENCOUNTER → 2022-12-27 10:12 | Outpatient (BNVA) | payer OTHER, SELFPAY | PROVIDERS: PCP Family Medicine; Visit Provider Student in an Organized Health Care Education/Training Program | DX: Z47.1 Aftercare following joint replacement surgery (principal); Z96.652 Presence of left artificial knee joint; M54.50 Low back pain, unspecified ==

== ENCOUNTER 2023-09-05 10:25 | Outpatient (REF) | payer OTHER, SELFPAY ==
[2023-09-05 16:25] LABS: Anion Gap 9.7 mmol/L (3-11); BUN 22 mg/dL (7-18); CO2 26.3 mmol/L (21.0-32.0); CREATININE 1.1 mg/dL (0.70-1.30); Calcium 9.2 mg/dL (8.5-10.1); Chloride 104 mmol/L (98-107); Estimated GFR 70.01 (mL/min/1.73m2); Glucose 118 mg/dL (74-106); Sodium 140 mmol/L (136-145)
[2023-09-05 16:45] LABS: Hemoglobin A1C 5.9 % (<5.7)
== END 2023-09-05 10:26 | disposition home or self-care (01) ==
LOC: NCHCN 10:25
PROVIDERS: PCP Family Medicine; Visit Provider Family Medicine
DX: R73.03 Prediabetes (principal); I10 Essential (primary) hypertension
CPT/HCPCS: 80048; 83036

== ENCOUNTER 2023-10-07 15:02 | Outpatient (CLI) | payer OTHER, SELFPAY ==
--- NOTE | 2023-10-07 08:45 | DI.RAD_ITS ---
Exam(s) XR KNEE LT 2V AP,LAT XR KNEE RT 2V AP,LAT EXAM: XR KNEE RT 2V AP,LAT CLINICAL HISTORY: ANNUAL F/U R TKA. TECHNIQUE: 2D digital imaging was performed. Two views of both knees. COMPARISON: CR XR KNEE RT 2V AP,LAT from 04/23/2022 CR XR KNEE LT 1V from 10/15/2022 CR XR KNEE LT 2V AP,LAT from 10/07/2023 FINDINGS: There has been no change in the alignment of the bilateral total knee prostheses. No abnormal bony l ucencies are seen. No evidence of joint effusion. Calcification again noted posterior soft tissues of the right knee. IMPRESSION: Stable appearance of bilateral total knee prostheses. DATA REPOSITORY: RADIATION DOSE DELIVERED:
== END 2023-10-07 15:03 | disposition home or self-care (01) ==
LOC: DIORS 15:02
PROVIDERS: PCP Family Medicine; Referring Provider Family Medicine
DX: Z96.651 Presence of right artificial knee joint (principal); Z96.652 Presence of left artificial knee joint; Z47.1 Aftercare following joint replacement surgery
CPT/HCPCS: 99213; 73560

== ENCOUNTER 2024-01-30 12:28 | Outpatient (REF) | payer OTHER, SELFPAY ==
[2024-01-30 15:51] LABS: ALT 37 U/L (16-63); AST 22 U/L (15-37); Albumin 4.1 g/dL (3.4-5.0); Alkaline Phosphatase 70 U/L (46-116); Anion Gap 10.3 mmol/L (3-11); BUN 28 mg/dL (7-18); Bilirubin, Total 0.5 mg/dL (0.2-1.0); CO2 27.7 mmol/L (21.0-32.0); CREATININE 1.2 mg/dL (0.70-1.30); Calcium 9.1 mg/dL (8.5-10.1); Chloride 105 mmol/L (98-107); Estimated GFR 62.67 (mL/min/1.73m2); Glucose 108 mg/dL (74-106); NT-proBNP 104 pg/mL (<300); Potassium 4.6 mmol/L (3.5-5.1); Sodium 143 mmol/L (136-145)
[2024-01-30 16:26] LABS: Hemoglobin A1C 5.9 % (<5.7)
== END 2024-01-30 12:29 | disposition home or self-care (01) ==
LOC: NCHCN 12:28
PROVIDERS: PCP Family Medicine; Visit Provider Family Medicine
DX: R73.03 Prediabetes (principal); I50.32 Chronic diastolic (congestive) heart failure
CPT/HCPCS: 80053; 83036; 83880

== ENCOUNTER 2024-03-09 14:39 | Outpatient (REF) | payer OTHER, SELFPAY ==
[2024-03-09 13:45] LABS: Anion Gap 9.6 mmol/L (3-11); BUN 29 mg/dL (7-18); CO2 27.4 mmol/L (21.0-32.0); CREATININE 1.3 mg/dL (0.70-1.30); Calcium 9.2 mg/dL (8.5-10.1); Chloride 106 mmol/L (98-107); Estimated GFR 56.93 (mL/min/1.73m2); Glucose 126 mg/dL (74-106); Potassium 4.8 mmol/L (3.5-5.1); Sodium 143 mmol/L (136-145)
== END 2024-03-09 14:40 | disposition home or self-care (01) ==
LOC: NCHCN 14:39
PROVIDERS: PCP Family Medicine; Visit Provider Student in an Organized Health Care Education/Training Program
DX: I50.9 Heart failure, unspecified (principal)
CPT/HCPCS: 80048

== ENCOUNTER 2024-05-12 18:25 | Outpatient (REF) | payer OTHER, SELFPAY ==
[2024-05-12 19:35] LABS: Abs Immature Grans 0.02 10^3/uL (0.0-0.06); Absolute Basophil Count 0.08 10^3/uL (0.0-0.2); Absolute Eosinophil Count 0.29 10^3/uL (0.0-0.7); Absolute Lymphocyte Count 2.39 10^3/uL (1.2-3.4); Absolute Neutrophil Count 5.27 10^3/uL (1.2-6.7); Basophils % 0.9 %; Eosinophils % 3.2 %; HCT 47.9 % (40.0-50.0); HGB 15.5 g/dL (13.5-17.5); Immature Grans % 0.2 %; Lymphocytes % 26.4 %; MCHC 32.4 % (32.0-36.0); MCV 96 fL (80-95); MPV 9.9 fL (8.0-11.0); Neutrophils % 58.3 %; Platelet Count 244 10^3/uL (130-400); RDW 13.5 % (11.8-14.1); WBC 9.05 10^3/uL (4.4-10.8)
[2024-05-12 19:57] LABS: ALT 38 U/L (16-63); AST 25 U/L (15-37); Albumin 3.8 g/dL (3.4-5.0); Alkaline Phosphatase 59 U/L (46-116); Anion Gap 7.6 mmol/L (3-11); BUN 20 mg/dL (7-18); Bilirubin, Total 0.57 mg/dL (0.2-1.0); CO2 27.4 mmol/L (21.0-32.0); Chloride 108 mmol/L (98-107); Glucose 104 mg/dL (74-106); NT-proBNP 157 pg/mL (<300); Potassium 4.3 mmol/L (3.5-5.1); Sodium 143 mmol/L (136-145); Total Protein 7.1 g/dL (6.4-8.2)
[2024-05-12 20:10] LABS: Bacteria Rare HPF (Negative); Epithelial Cells Rare HPF (Negative); RBC 0-2 HPF (0-2); WBC 0-2 HPF (0-5)
[2024-05-12 20:11] LABS: C & S Indicated? No; Casts Negative LPF (Negative); Crystals Negative HPF (Negative); Mucus Negative (Negative)
[2024-05-12 20:24] LABS: COMMENT (LAB VIEW ONLY) 198.06 mg/dL
[2024-05-12 20:31] LABS: Microalb ug/mg Crea 233.5 ug/mg Cr
== END 2024-05-12 18:26 | disposition home or self-care (01) ==
LOC: NCHCN 18:25
PROVIDERS: PCP Student in an Organized Health Care Education/Training Program; Visit Provider Student in an Organized Health Care Education/Training Program
DX: R06.00 Dyspnea, unspecified (principal); R35.0 Frequency of micturition
CPT/HCPCS: 80053; 81015; 82043; 82570; 83880; 85025

== ENCOUNTER 2025-02-17 16:08 | Outpatient (REF) | payer MEDICARE, SELFPAY ==
[2025-02-17 15:45] LABS: Anion Gap 10.2 mmol/L (3-11); BUN 41 mg/dL (7-18); CO2 28.8 mmol/L (21.0-32.0); CREATININE 1.4 mg/dL (0.70-1.30); Calcium 8.7 mg/dL (8.5-10.1); Chloride 104 mmol/L (98-107); Estimated GFR 51.77 (mL/min/1.73m2); Glucose 145 mg/dL (74-106); Magnesium 1.7 mg/dL (1.8-2.4); Potassium 4.1 mmol/L (3.5-5.1); Sodium 143 mmol/L (136-145)
== END 2025-02-17 16:09 | disposition home or self-care (01) ==
LOC: NCHCN 16:08
PROVIDERS: PCP Student in an Organized Health Care Education/Training Program; Visit Provider Student in an Organized Health Care Education/Training Program
DX: I10 Essential (primary) hypertension (principal)
CPT/HCPCS: 80048; 83735

== ENCOUNTER 2025-03-02 12:46 | Outpatient (REF) | payer MEDICARE, SELFPAY ==
[2025-03-02 17:47] LABS: Anion Gap 6.5 mmol/L (3-11); BUN 40 mg/dL (7-18); CO2 31.5 mmol/L (21.0-32.0); CREATININE 1.3 mg/dL (0.70-1.30); Calcium 8.9 mg/dL (8.5-10.1); Chloride 101 mmol/L (98-107); Estimated GFR 56.58 (mL/min/1.73m2); Glucose 146 mg/dL (74-106); Magnesium 1.6 mg/dL (1.8-2.4); Potassium 3.8 mmol/L (3.5-5.1); Sodium 139 mmol/L (136-145)
== END 2025-03-02 12:47 | disposition home or self-care (01) ==
LOC: NCHCN 12:46
PROVIDERS: PCP Student in an Organized Health Care Education/Training Program; Visit Provider Student in an Organized Health Care Education/Training Program
DX: I10 Essential (primary) hypertension (principal)
CPT/HCPCS: 80048; 83735

== ENCOUNTER 2025-05-06 10:28 | Outpatient (REF) | payer MEDICARE, SELFPAY ==
[2025-05-06 15:37] LABS: Anion Gap 5.6 mmol/L (3-11); BUN 25 mg/dL (7-18); CO2 31.4 mmol/L (21.0-32.0); Calcium 9.2 mg/dL (8.5-10.1); Chloride 105 mmol/L (98-107); Estimated GFR 62.29 (mL/min/1.73m2); Glucose 112 mg/dL (74-106); Magnesium 1.8 mg/dL (1.8-2.4); Potassium 4.9 mmol/L (3.5-5.1); Sodium 142 mmol/L (136-145)
== END 2025-05-06 10:29 | disposition home or self-care (01) ==
LOC: NCHCN 10:28
PROVIDERS: PCP Student in an Organized Health Care Education/Training Program; Visit Provider Student in an Organized Health Care Education/Training Program
DX: E83.42 Hypomagnesemia (principal)
CPT/HCPCS: 80048; 83735

== ENCOUNTER 2025-05-17 17:16 | Outpatient (REF) | payer MEDICARE, SELFPAY ==
[2025-05-17 21:33] LABS: Anion Gap 9.2 mmol/L (3-11); BUN 57 mg/dL (7-18); CO2 29.8 mmol/L (21.0-32.0); Calcium 9.1 mg/dL (8.5-10.1); Chloride 103 mmol/L (98-107); Estimated GFR 41.01 (mL/min/1.73m2); Glucose 120 mg/dL (74-106); Magnesium 1.9 mg/dL (1.8-2.4); Potassium 3.6 mmol/L (3.5-5.1); Sodium 142 mmol/L (136-145)
== END 2025-05-17 17:17 | disposition home or self-care (01) ==
LOC: NCHCN 17:16
PROVIDERS: PCP Student in an Organized Health Care Education/Training Program; Visit Provider Student in an Organized Health Care Education/Training Program
DX: I50.32 Chronic diastolic (congestive) heart failure (principal)
CPT/HCPCS: 80048; 83735